=== PATIENT | male | born 1980 | race Caucasian/White ===

== ENCOUNTER → 2016-10-21 | Outpatient (REF) | payer OTHER ==
[~2016-10-21] MED LIST: /ONDA4TA OR; CIPR25SS OR; Clindamycin PO; DECADRON; DECADRON PO; IBUP800T OR; KETO-28 OR; NAPR500T OR; PERC7.5T8 OR; clindamycin
[2016-10-21 12:35] LABS: ALBUMIN 3.9 GM/DL (3.2-5.2); ALBUMIN/GLOBULIN RATIO 1.11 (1.00-1.93); ALKALINE PHOSPHATASE 120 U/L (45-117); ALT/SGPT 39 U/L (12-78); ANION GAP 7 MEQ/L (8-16); AST/SGOT 15 U/L (15-37); BILIRUBIN,TOTAL 0.2 MG/DL (0.2-1.0); BLOOD UREA NITROGEN 9 MG/DL (7-18); CALCIUM LEVEL 8.9 MG/DL (8.5-10.1); CARBON DIOXIDE LEVEL 27 MEQ/L (21-32); CHLORIDE LEVEL 101 MEQ/L (98-107); CREATININE FOR GFR 0.88 MG/DL (0.70-1.30); GLOMERULAR FILTRATION RATE > 60.0 (>60); GLUCOSE, FASTING 327 MG/DL (70-105); POTASSIUM SERUM 4.3 MEQ/L (3.5-5.1); SODIUM LEVEL 135 MEQ/L (136-145); TOTAL PROTEIN 7.4 GM/DL (6.4-8.2)
[2016-10-21 12:44] LABS: INR 0.97
[2016-10-21 12:59] LABS: BASO % 0.6 % (0.0-1.0); EOS # 0.1 K/mm3 (0.0-0.50); EOS % 1.6 % (0.0-3.0); LARGE UNSTAINED CELL # 0.1 K/mm3 (0.0-0.4); LARGE UNSTAINED CELL % 0.9 % (0.0-4.0); LYMPH # 2.3 K/mm3 (1.5-4.5); LYMPH % 27.9 % (24.0-44.0); MEAN CORPUSCULAR HEMOGLOBIN 29.9 pg (27.0-33.0); MEAN CORPUSCULAR HGB CONC 33.9 g/dl (32.0-36.5); MEAN CORPUSCULAR VOLUME 88.1 fl (80.0-96.0); MONO # 0.6 K/mm3 (0.0-0.8); MONO % 7.5 % (0.0-5.0); NEUTROPHILS # 4.9 K/mm3 (1.8-7.7); NEUTROPHILS % 61.5 % (36.0-66.0); RED CELL DISTRIBUTION WIDTH 11.7 % (11.5-14.5)
[2016-10-21 14:19] LABS: PLATELET COUNT, AUTOMATED 218 k/mm3 (150-450)
== END ==
LOC: M SFHCLERA 10:22
PROVIDERS: ATTEND Family Medicine
DX: Z01.818 Encounter for other preprocedural examination (principal); I10 Essential (primary) hypertension; E11.9 Type 2 diabetes mellitus without complications

== ENCOUNTER → 2016-12-16 | Outpatient (REF) | payer OTHER ==
[2016-12-16 13:09] LABS: ALBUMIN 4.2 GM/DL (3.2-5.2); ALBUMIN/GLOBULIN RATIO 1.17 (1.00-1.93); ALKALINE PHOSPHATASE 89 U/L (45-117); ALT/SGPT 40 U/L (12-78); ANION GAP 7 MEQ/L (8-16); AST/SGOT 15 U/L (15-37); BILIRUBIN,TOTAL 0.3 MG/DL (0.2-1.0); BLOOD UREA NITROGEN 11 MG/DL (7-18); CALCIUM LEVEL 9.3 MG/DL (8.5-10.1); CARBON DIOXIDE LEVEL 28 MEQ/L (21-32); CHLORIDE LEVEL 104 MEQ/L (98-107); CHOLESTEROL LEVEL 161 MG/DL (<200); CREATININE FOR GFR 0.87 MG/DL (0.70-1.30); GLOMERULAR FILTRATION RATE > 60.0 (>60); GLUCOSE, FASTING 153 MG/DL (70-105); POTASSIUM SERUM 5.1 MEQ/L (3.5-5.1); SODIUM LEVEL 139 MEQ/L (136-145); TOTAL PROTEIN 7.8 GM/DL (6.4-8.2); TRIGLYCERIDES LEVEL 132 MG/DL (<150)
== END ==
LOC: M SFHCLERA 08:53
PROVIDERS: ATTEND Physician Assistant
DX: E78.2 Mixed hyperlipidemia (principal); E11.65 Type 2 diabetes mellitus with hyperglycemia

== ENCOUNTER → 2017-04-23 | Outpatient (CLI) | payer OTHER ==
--- NOTE | 2017-04-23 12:54 | REP ---
RIGHT SHOULDER, FOUR VIEWS: There is no evidence of an acute fracture, dislocation or intrinsic bone disease. IMPRESSION: No fracture or dislocation. Signed by Edouard Trinidad MD 04/23/2017 02:38 P
== END ==
LOC: M LRY 10:44
PROVIDERS: ATTEND Physician Assistant
DX: M25.511 Pain in right shoulder (principal)

== ENCOUNTER → 2017-12-19 | Outpatient (REF) | payer OTHER ==
[2017-12-19 19:18] LABS: HEMATOCRIT 45.6 % (42.0-52.0); HEMOGLOBIN 15.3 g/dl (13.5-17.5); MEAN CORPUSCULAR HEMOGLOBIN 29.9 pg (27.0-33.0); MEAN CORPUSCULAR HGB CONC 33.6 g/dl (32.0-36.5); MEAN CORPUSCULAR VOLUME 89.1 fl (80.0-96.0); PLATELET COUNT, AUTOMATED 288 10^3/uL (150-450); RED BLOOD COUNT 5.12 10^6/uL (4.30-6.10); RED CELL DISTRIBUTION WIDTH 12.1 % (11.5-14.5); WHITE BLOOD COUNT 9.4 10^3/uL (4.0-10.0)
[2017-12-19 19:35] LABS: ALBUMIN/GLOBULIN RATIO 1.14 (1.00-1.93); ALKALINE PHOSPHATASE 96 U/L (45-117); ALT/SGPT 42 U/L (12-78); ANION GAP 9 MEQ/L (8-16); AST/SGOT 20 U/L (7-37); BILIRUBIN,TOTAL 0.3 MG/DL (0.2-1.0); BLOOD UREA NITROGEN 12 MG/DL (7-18); CALCIUM LEVEL 9.1 MG/DL (8.5-10.1); CARBON DIOXIDE LEVEL 24 MEQ/L (21-32); CHLORIDE LEVEL 108 MEQ/L (98-107); CHOLESTEROL LEVEL 152 MG/DL (<200); CHOLESTEROL RISK RATIO 4.606 (<5); GLOMERULAR FILTRATION RATE > 60.0 (>60); GLUCOSE, FASTING 138 MG/DL (70-100); HDL CHOLESTEROL 33 MG/DL (>40); LDL CHOLESTEROL 94.2 MG/DL (<100); NON-HDL-C 119 MG/DL; POTASSIUM SERUM 4.3 MEQ/L (3.5-5.1); SODIUM LEVEL 141 MEQ/L (136-145); TOTAL PROTEIN 7.5 GM/DL (6.4-8.2); TRIGLYCERIDES LEVEL 124 MG/DL (<150)
[2017-12-19 19:39] LABS: ESTIMATED AVERAGE GLUCOSE 143 MG/DL (60-110); HEMOGLOBIN A1c 6.6 %
[2017-12-19 19:56] LABS: MALB URINE SIEMENS 9.3 MG/L
== END ==
LOC: M SFHCLERA 10:56
DX: I10 Essential (primary) hypertension (principal); E11.65 Type 2 diabetes mellitus with hyperglycemia; E78.2 Mixed hyperlipidemia

== ENCOUNTER → 2020-08-31 | Outpatient (CLI) | payer OTHER ==
[~2020-08-31] MED LIST changes: -/ONDA4TA OR; +AMLO25TA PO; +GLIP10TA PO; +HYDR-4517 PO; +IBUP-1114 PO; +LISI20TA33 PO; +METF500T13 PO; +NEUR300C PO; +ONDA-1 OR
== END ==
LOC: M LABSMTC 09:56
PROVIDERS: ATTEND Anesthesiology
DX: Z01.812 Encounter for preprocedural laboratory examination (principal); Z20.822 Contact with and (suspected) exposure to COVID-19

== ENCOUNTER → 2020-09-03 | Outpatient (CLI) | payer BC ==
--- NOTE | 2020-09-04 17:42 | SLEEPHOME ---
DATE: 09/03/2020 ORDERED BY: BENJAMIN Simmons Diagnostic home sleep testing was performed due to concern for the obstructive sleep apnea syndrome. For testing, a nocturnal T3 respiratory monitoring device was used. Continuous record was made of pulse, oxygen saturation, air flow, chest and abdominal strain, and body position. Nine hours and 48 minutes of data were reviewed. There were 6 hours and 40 minutes marked as time in bed. During the interval marked time in bed, there were 55 respiratory events identified of 10 seconds in duration or greater for a respiratory event index of 8.2. The events were primarily obstructive. Baseline pulse rate was 79. Pulse rate ranged 61 to 107. Baseline saturation was 95%. Saturations fell to 90%. Testing was performed in both the supine and nonsupine positions. IMPRESSION: Abnormal home sleep testing with repetitive respiratory events and oxygen desaturations to 90% with a respiratory event index of 8.2 is consistent with the obstructive sleep apnea syndrome. RECOMMENDATION: The patient should be encouraged to undergo a formal sleep evaluation. MD Trang Pyle NP
== END ==
LOC: M SLEEP HO 13:31
PROVIDERS: ATTEND Physician Assistant
DX: R06.83 Snoring (principal)

== ENCOUNTER 2020-09-05 12:11 | Day surgery (SDC) | payer OTHER ==
[~2020-09-05] VITALS: Ht 182.9 cm; Wt 135.2 kg
[~2020-09-05 12:11] MED LIST changes: +LR 1,000 ML IV ONE; +ceFAZolin SOD 2 GM in IV 1 EA IV ONE
[2020-09-05] MEDS ORDERED: fentaNYL 250 MCG/5 ML INJECTION (J3010) As Ordered ONE (14:15)
[2020-09-05] MEDS ORDERED: ROCURONIUM BROMIDE 50 MG/5 ML VIAL As Ordered ONE (14:15)
[2020-09-05] MEDS ORDERED: propofoL 200 MG/20 ML VIAL As Ordered ONE ×2 (14:15→17:02)
[2020-09-05] MEDS ORDERED: LIDOCAINE 2% 100MG/5ML SDV (FOR ANES.) As Ordered ONE (14:15)
[2020-09-05] MEDS ORDERED: MIDAZOLAM INJ 2MG/2ML VIAL (J2250 PER 1MG) As Ordered ONE (16:02)
[2020-09-05] MEDS ORDERED: ROPIvacaine 0.5% 30ML INJECTION (J2795 PER 1MG) As Ordered ONE (16:11)
[2020-09-05] MEDS ORDERED: dexameTHASONE 4 MG/ML 1ML VIAL (J1100 PER 1MG) As Ordered ONE (17:00)
[2020-09-05] MEDS ORDERED: ONDANSETRON 4MG/2ML VIAL As Ordered ONE (17:00)
--- NOTE | 2020-09-05 17:18 | ROOPDOC ---
[facility] Report Of Operation Report of Operation DATE OF PROCEDURE: 09/05/20 PREPROCEDURE DIAGNOSES: Left knee medial meniscus tear. POSTPROCEDURE DIAGNOSES: Left knee medial meniscus tear. PROCEDURE: Left knee arthroscopy partial medial meniscectomy. SURGEON: Linda Esqueda MD INFORMATION RECEPTIONIST: ANESTHESIA: Gen. anesthetic. Dr. Kenney ESTIMATED BLOOD LOSS: Approximately 10 mL. COMPLICATIONS: None. REMARKS: None. PROCEDURE NOTE: This 31-year-old man had signs and symptoms consistent with an acute medial meniscus tear. He failed conservative management. He wished to go ahead with left knee partial medial meniscectomy. We explained the pros and cons risks and benefits of that. He wished to proceed. I marked the left lower extremity and proceeded to surgery.. DESCRIPTION OF PROCEDURE: Patient was brought to operating theater. He was placed supine on the operating room table. General anesthesia was induced as well as 2 g of IV Ancef given prior to the start of the case. Tourniquet was applied to the left thigh and appropriately padded. Stress positioner was used at the patient's left side. All bony prominences were appropriately padded. Limb was prepped with chlorhexidine-based prep solution running over 3 minutes preparatory solution and drying time prior to draping. Preoperative timeout was performed confirming the site the patient and the surgery. I began by elevating the limb and inflating the tourniquet to 250 mmHg. I made standard anterolateral and anteromedial arthroscopy portals. Examination intra- articular extent the knee. The cartilage of the patellofemoral joint appeared normal. Medial and lateral gutters were normal cartilage of the lateral compartment was normal. Meniscus of the lateral compartment was normal. No loose bodies. ACL and PCL appeared normal and stable to probing. Medial compartment had a mid body medial meniscus tear with horizontal and vertical components. This was debrided to stable margins taking out approximately 3-5% of the meniscus. A shaving instruments as well as duckbill biting instruments. In addition to this tear there is also a tear near the posterior horn and root area. This had a typical nub like appearance. I again divided this down to stable margins. The anterior and posterior roots and horns as well as the entire extent of the meniscus was stable and solid to probing after partial medial meniscectomy. I did look for a lateral parapatellar plica but there is only a little bit of redundant tissue so this was left alone. Knee was thoroughly irrigated. Tourniquet was let down. Knee was drained of intra-articular arthroscopy fluid. Portal sites were cleaned with wet and dry dressing followed by instillation of 5 mL of quarter percent Marcaine as well as Steri-Strips Adaptic 4 x 8 gauze and ABDs dressing overwrapped with 6 inch Pola bandage. Patient was woken up from general anesthetic transferred off the operating room table and taken to postanesthetic care unit in stable condition. All sponge, needle and sponge counts are correct patient's estimated blood loss 10 mL. No complications. Arthroscopy pictures taken and saved onto the system. Plan for the patient is to be range of motion weightbearing as tolerated with crutches as needed. Be discharged home according to day surgery criteria. Their follow-up in the office 2 weeks' time. Prescription has been sent and electronically to the pharmacy of choice. Risk factors for harms from taking opioid medications discussed and assessed including but not limited to personal or family history of substance use disorder, anxiety or depression, , age 65 or older, COPD or other underlying respiratory conditions, and renal or hepatic insufficiency. Discussed with patient concerns and determined any harms they may experience or be currently experiencing such as nausea or constipation, feeling sedated or confused, breathing interruptions during sleep, or taking or craving more opioids than prescribed or difficulty controlling use (addiction). Discussed early warning signs of overdose including confusion, sedation, slurred speech, abnormal gait. Postoperative wound instructions were given. It was recommended to keep the wound clean and dry. Dressing changes as needed. It was reinforced with the patient that they should call us or be seen immediately for redness, drainage, or fever. . DALY ESQUEDA MD Sep 05, 2020 17:18
[2020-09-05] MEDS ORDERED: LR 1,000 ML IV SCH (17:30)
[2020-09-05] MEDS ORDERED: fentaNYL 100 MCG/2 ML INJECTION (J3010) IV PRN (17:30)
[2020-09-05] MEDS ORDERED: oxyCODONE 5MG TAB PO PRN (17:30)
[2020-09-05] MEDS ORDERED: ONDANSETRON 4MG/2ML VIAL IV PRN (17:30)
[2020-09-05] MEDS ORDERED: HYDROMORPHONE HCL 0.5 MG/ 0.5 ML SYRINGE (J1170 PER 1) IV PRN (17:30)
[2020-09-05 18:25] VITALS: BP 120/83
== END 2020-09-05 18:50 | disposition home or self-care (01) ==
LOC: M SDC 12:11
PROVIDERS: ATTEND Orthopaedic Surgery Sports Medicine
DX: S83.242A Other tear of medial meniscus, current injury, left knee, initial encounter (principal); X50.9XXA Other and unspecified overexertion or strenuous movements or postures, initial encounter; Y92.89 Other specified places as the place of occurrence of the external cause; Y93.9 Activity, unspecified; Y99.0 Civilian activity done for income or pay; I10 Essential (primary) hypertension; E11.9 Type 2 diabetes mellitus without complications; Z79.84 Long term (current) use of oral hypoglycemic drugs; Z79.899 Other long term (current) drug therapy; Z91.040 Latex allergy status; Z88.5 Allergy status to narcotic agent
CPT/HCPCS: 29881; J0690; J1100; J2250; J2405; J2795; J3010

== ENCOUNTER 2021-04-29 07:06 | Emergency (ER) | payer BC, OTHER ==
[~2021-04-29] VITALS: Ht 185.4 cm; Wt 131.5 kg
[~2021-04-29 07:06] MED LIST changes: -LR 1,000 ML IV ONE; -ceFAZolin SOD 2 GM in IV 1 EA IV ONE
--- OUTSIDE RECORDS SUMMARY | 2021-04-29 07:12 | CCD ---
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 Name Role Phone Elizabeth Ibarra MD Unavailable Unavailable Elizabeth Ibarra MD Unavailable Unavailable Elizabeth Ibarra MD Unavailable Unavailable Elizabeth Ibarra MD Unavailable Unavailable Elizabeth Ibarra MD Unavailable Unavailable Elizabeth Ibarra MD Unavailable Unavailable Elizabeth Ibarra MD Unavailable Unavailable Elizabeth Ibarra MD Unavailable Unavailable Elizabeth Ibarra MD Unavailable Unavailable Elizabeth Ibarra MD Unavailable Unavailable Elizabeth Ibarra MD Unavailable Unavailable Elizabeth Ibarra MD Unavailable Unavailable Elizabeth Ibarra MD Unavailable Unavailable Elizabeth Ibarra MD Unavailable Unavailable Elizabeth Ibarra MD Unavailable Unavailable Elizabeth Ibarra MD Unavailable Unavailable Elizabeth Ibarra MD Unavailable Unavailable Elizabeth Ibarra MD Unavailable Unavailable Elizabeth Ibarra MD Unavailable Unavailable Elizabeth Ibarra MD Unavailable Unavailable Elizabeth Ibarra MD Unavailable Unavailable Elizabeth Ibarra MD Unavailable Unavailable Elizabeth Ibarra MD Unavailable Unavailable Elizabeth Ibarra MD Unavailable Unavailable Mollison, Elizabeth Calloway MD Unavailable Unavailable Mollison, Elizabeth Calloway MD Unavailable Unavailable Mollison, Elizabeth Calloway MD Unavailable Unavailable Mollison, Elizabeth Calloway MD Unavailable Unavailable Mollison, Elizabeth Calloway MD Unavailable Unavailable Mollison, Elizabeth Calloway MD Unavailable Unavailable DUSSING, BEE RUBBER AND PLASTICS WORKER-C Unavailable Unavailable DUSSING, BEE RUBBER AND PLASTICS WORKER-C Unavailable Unavailable DUSSING, BEE RUBBER AND PLASTICS WORKER-C Unavailable Unavailable DUSSING, BEE RUBBER AND PLASTICS WORKER-C Unavailable Unavailable DUSSING, BEE RUBBER AND PLASTICS WORKER-C Unavailable Unavailable DUSSING, BEE RUBBER AND PLASTICS WORKER-C Unavailable Unavailable DUSSING, BEE RUBBER AND PLASTICS WORKER-C Unavailable Unavailable DUSSING, BEE RUBBER AND PLASTICS WORKER-C Unavailable Unavailable DUSSING, BEE RUBBER AND PLASTICS WORKER-C Unavailable Unavailable DUSSING, BEE RUBBER AND PLASTICS WORKER-C Unavailable Unavailable DUSSING, BEE RUBBER AND PLASTICS WORKER-C Unavailable Unavailable DUSSING, BEE RUBBER AND PLASTICS WORKER-C Unavailable Unavailable DUSSING, BEE RUBBER AND PLASTICS WORKER-C Unavailable Unavailable DUSSING, BEE RUBBER AND PLASTICS WORKER-C Unavailable Unavailable DUSSING, BEE RUBBER AND PLASTICS WORKER-C Unavailable Unavailable DUSSING, BEE RUBBER AND PLASTICS WORKER-C Unavailable Unavailable DUSSING, BEE RUBBER AND PLASTICS WORKER-C Unavailable Unavailable DUSSING, BEE RUBBER AND PLASTICS WORKER-C Unavailable Unavailable DUSSING, BEE RUBBER AND PLASTICS WORKER-C Unavailable Unavailable DUSSING, BEE RUBBER AND PLASTICS WORKER-C Unavailable Unavailable DUSSING, BEE RUBBER AND PLASTICS WORKER-C Unavailable Unavailable DUSSING, BEE RUBBER AND PLASTICS WORKER-C Unavailable Unavailable DUSSING, BEE RUBBER AND PLASTICS WORKER-C Unavailable Unavailable DUSSING, BEE RUBBER AND PLASTICS WORKER-C Unavailable Unavailable DUSSING, BEE RUBBER AND PLASTICS WORKER-C Unavailable Unavailable DUSSING, BEE RUBBER AND PLASTICS WORKER-C Unavailable Unavailable DUSSING, BEE RUBBER AND PLASTICS WORKER-C Unavailable Unavailable DUSSING, BEE RUBBER AND PLASTICS WORKER-C Unavailable Unavailable DUSSING, BEE RUBBER AND PLASTICS WORKER-C Unavailable Unavailable DUSSING, BEE RUBBER AND PLASTICS WORKER-C Unavailable Unavailable DUSSING, BEE RUBBER AND PLASTICS WORKER-C Unavailable Unavailable DUSSING, BEE RUBBER AND PLASTICS WORKER-C Unavailable Unavailable DUSSING, BEE RUBBER AND PLASTICS WORKER-C Unavailable Unavailable DUSSING, BEE RUBBER AND PLASTICS WORKER-C Unavailable Unavailable Maki SHAFFER Unavailable Unavailable BUNKER, R FABRICIO PA Unavailable Unavailable BUNKER, R FABRICIO PA Unavailable Unavailable BUNKER, R FABRICIO PA Unavailable Unavailable BUNKER, R FABRICIO PA Unavailable Unavailable BUNKER, R FABRICIO PA Unavailable Unavailable BUNKER, R FABRICIO PA Unavailable Unavailable BUNKER, R FABRICIO PA Unavailable Unavailable BUNKER, R FABRICIO PA Unavailable Unavailable BUNKER, R FABRICIO PA Unavailable Unavailable BUNKER, R FABRICIO PA Unavailable Unavailable BUNKER, R FABRICIO PA Unavailable Unavailable BUNKER, R FABRICIO PA Unavailable Unavailable BUNKER, R FABRICIO PA Unavailable Unavailable BUNKER, R FABRICIO PA Unavailable Unavailable BUNKER, R FABRICIO PA Unavailable Unavailable BUNKER, R FABRICIO PA Unavailable Unavailable BUNKER, R FABRICIO PA Unavailable Unavailable BUNKER, R FABRICIO PA Unavailable Unavailable BUNKER, R FABRICIO PA Unavailable Unavailable BUNKER, R FABRICIO PA Unavailable Unavailable BUNKER, R FABRICIO PA Unavailable Unavailable BUNKER, R FABRICIO PA Unavailable Unavailable BUNKER, R FABRICIO PA Unavailable Unavailable BUNKER, R FABRICIO PA Unavailable Unavailable BUNKER, R FABRICIO PA Unavailable Unavailable BUNKER, R FABRICIO PA Unavailable Unavailable BUNKER, R FABRICIO PA Unavailable Unavailable BUNKER, R FABRICIO PA Unavailable Unavailable BUNKER, R FABRICIO PA Unavailable Unavailable BUNKER, R FABRICIO PA Unavailable Unavailable BUNKER, R FABRICIO PA Unavailable Unavailable BUNKER, R FABRICIO PA Unavailable Unavailable BUNKER, R FABRICIO PA Unavailable Unavailable BUNKER, R FABRICIO PA Unavailable Unavailable BUNKER, R FABRICIO PA Unavailable Unavailable BUNKER, R FABRICIO PA Unavailable Unavailable BUNKER, R FABRICIO PA Unavailable Unavailable BUNKER, R FABRICIO PA Unavailable Unavailable BUNKER, R FABRICIO PA Unavailable Unavailable BUNKER, R FABRICIO PA Unavailable Unavailable BUNKER, R FABRICIO PA Unavailable Unavailable BUNKER, R FABRICIO PA Unavailable Unavailable BUNKER, R FABRICIO PA Unavailable Unavailable BUNKER, R FABRICIO PA Unavailable Unavailable BUNKER, R FABRICIO PA Unavailable Unavailable BUNKER, R FABRICIO PA Unavailable Unavailable BUNKER, R FABRICIO PA Unavailable Unavailable BUNKER, R FABRICIO PA Unavailable Unavailable BUNKER, R FABRICIO PA Unavailable Unavailable BUNKER, R FABRICIO PA Unavailable Unavailable BUNKER, R FABRICIO PA Unavailable Unavailable BUNKER, R FABRICIO PA Unavailable Unavailable BUNKER, R FABRICIO PA Unavailable Unavailable BUNKER, R FABRICIO PA Unavailable Unavailable BUNKER, R FABRICIO PA Unavailable Unavailable AYALA, M LEWIS PA Unavailable Unavailable AYALA, M LEWIS PA Unavailable Unavailable AYALA, M LEWIS PA Unavailable Unavailable AYALA, M LEWIS PA Unavailable Unavailable AYALA, M LEWIS PA Unavailable Unavailable AYALA, M LEWIS PA Unavailable Unavailable AYALA, M LEWIS PA Unavailable Unavailable AYALA, M LEWIS PA Unavailable Unavailable AYALA, M LEWIS PA Unavailable Unavailable AYALA, M LEWIS PA Unavailable Unavailable AYALA, M LEWIS PA Unavailable Unavailable AYALA, M LEWIS PA Unavailable Unavailable AYALA, M LEWIS PA Unavailable Unavailable AYALA, M LEWIS PA Unavailable Unavailable AYALA, M LEWIS PA Unavailable Unavailable AYALA, M LEWIS PA Unavailable Unavailable AYALA, M LEWIS PA Unavailable Unavailable AYALA, M LEWIS PA Unavailable Unavailable AYALA, M LEWIS PA Unavailable Unavailable AYALA, M LEWIS PA Unavailable Unavailable AYALA, M LEWIS PA Unavailable Unavailable AYALA, M LEWIS PA Unavailable Unavailable AYALA, M LEWIS PA Unavailable Unavailable AYALA, M LEWIS PA Unavailable Unavailable AYALA, M LEWIS PA Unavailable Unavailable AYALA, M LEWIS PA Unavailable Unavailable AYALA, M LEWIS PA Unavailable Unavailable AYALA, M LEWIS PA Unavailable Unavailable AYALA, M LEWIS PA Unavailable Unavailable AYALA, M LEWIS PA Unavailable Unavailable AYALA, M LEWIS PA Unavailable Unavailable AYALA, M LEWIS PA Unavailable Unavailable AYALA, M LEWIS PA Unavailable Unavailable AYALA, M LEWIS PA Unavailable Unavailable AYALA, M LEWIS PA Unavailable Unavailable Re-disclosure Warning The records that you are about to access may contain information from federally-assisted alcohol or drug abuse programs. If such information is present, then the following federally mandated warning applies: This information has been disclosed to you from records protected by federal confidentiality rules (42 CFR part 2). The federal rules prohibit you from making any further disclosure of this information unless further disclosure is expressly permitted by the written consent of the person to whom it pertains or as otherwise permitted by 42 CFR part 2. A general authorization for the release of medical or other information is NOT sufficient for this purpose. The Federal rules restrict any use of the information to criminally investigate or prosecute any alcohol or drug abuse patient.The records that you are about to access may contain highly sensitive health information, the redisclosure of which is protected by Article 27-F of the [place] State Public Health law. If you continue you may have access to information: Regarding HIV / AIDS; Provided by facilities licensed or operated by the [facility] Office of Mental Health; or Provided by the [facility] Office for People With Developmental Disabilities. If such information is present, then the following [facility] mandated warning applies: This information has been disclosed to you from confidential records which are protected by state law. State law prohibits you from making any further disclosure of this information without the specific written consent of the person to whom it pertains, or as otherwise permitted by law. Any unauthorized further disclosure in violation of state law may result in a fine or half-way sentence or both. A general authorization for the release of medical or other information is NOT sufficient authorization for further disc losure. Encounters Encounter Providers Location Date Indications Data Source(s ) Recurring Patient Referrer: FABRICIO ALEXANDER 11/27/2020 10: 21:34 AM EDT [facility] [place] [address] [address] 11/15/2020 12:00:00 AM EDT eCW1 ([facility]) Outpatient Attender: BEE NEWBERRY-CReferrer: FABRICIO ALEXANDER 10/29/2020 02:30:17 PM EDT [facility] Office Visit Attender: Brodie Sterling/Marli/Navarro/Re indl 10/19/2020 01:45:00 PM EDT [facility] ([facility]) Recurring Patient Referrer: FABRICIO ALEXANDER 10/01/2020 11: 11:12 AM EDT [facility] Office Visit Attender: Brodie Sterling/Marli/Navarro/Re indl 09/18/2020 08:15:00 AM EDT [facility] ([facility]) Outpatient Attender: LEWIS Sterling/Marli/Navarro/Rein dl 08/31/2020 01:30:00 PM EST [facility] ([facility]) Outpatient Attender: BEE NEWBERRY-CReferrer: FABRICIO ALEXANDER 08/27/2020 08:54:12 AM EST [facility] [place] [address] [address] 08/13/2020 12:00:00 AM EST eCW1 ([facility]) [place] [address] [address] 08/13/2020 12:00:00 AM EST eCW1 ([facility]) Outpatient Attender: Brodie Sterling/[place]/Navarro/Re indl 08/10/2020 07:15:00 AM EST [facility] ([facility], ) Outpatient Attender: Brodie Sterling/Marli/Navarro/Re indl 07/26/2020 08:45:00 AM EST [facility] ([facility], ) Outpatient Attender: BEE LANDEROSCReferrer: FABRICIO ALEXANDER 06/11/2020 10:19:26 AM EST [facility] Outpatient Attender: BEE LANDEROSCReferrer: FABRICIO ALEXANDER 03/23/2020 03:30:33 PM EDT [facility] Immunizations Vaccine Date Status Description Data Source(s) COVID-19 VACCINE Pfizer 04/19/2021 12:00:00 AM EDT completed [facility] Vaccine Series Complete: NOThis Data was Submitted to [facility]. COVID-19 VACC, MRNA(PFIZER)/PF 04/19/2021 12:00:00 AM EDT completed [facility] Medications Medication Brand Name Start Date Product Form Dose Route Admi nistrative Instructions Pharmacy Instructions Status Indications Reaction Description Data Source(s) Diabetic Shoes UNK 11/19/2020 12:00:00 AM EDT active Diabetic Shoes eCW1 ([facility]) Acetaminophen 325 MG / Oxycodone Hydrochloride 5 MG Or al Tablet Oxycodone-Acetaminophen 09/06/2020 12:00:00 AM EST ORAL completed [facility] ([facility], ) Acetaminophen 325 MG / Hydrocodone Bitartrate 5 MG Ora l Tablet Hydrocodone-Acetaminophen 09/05/2020 12:00:00 AM EST ORAL completed [facility] ([facility], ) Insurance Providers Payer name Policy type / Coverage type Policy ID Covered alliance party ID Covered alliance party's relationship to rodrigues Policy Rodrigues Plan Information MEDICAID [id number] SP [id number] [place] Medicaid F [id number] SELF 7 [id number] [place] F [id number] SELF 7 [id number] [place] MEDICAID [id number] Leydi 7 [id number] [place] F [id number] SELF [id number] GAVIN [id number] SP [id number] [place] Federal Employee Program J [id number] SELF [id number] [place] [id number] S [id number] GAVIN MEDICAID PI PI SELF PAY ONLY UNAVAILABLE UNAV AILABLE SELF PAY ONLY [id number] SP [id number] SELF PAY UNAVAILABLE SP UNAVAILA BLE MEDICAID M [id number] S [id number] DEPT OF LABOR [place] [id number] SP [id number] BC FEDERAL EMPLOYEE PROGRAM [id number] SP [id number] GAVIN [id number] SP [id number] DEPART OF LABOR O [id number] S [id number] CPAPC -PHYSICIAN [id number] 20 [id number] CPAC -O/P [id number] 20 [id number] 1 ANSI-Commercial [id number] Problems, Conditions, and Diagnoses No Information Surgeries/Procedures Procedure Description Date Indications Data Source(s) ARTHRS KNE SURG W/MENISCECTOMY MED/LAT W/SHVG 09/06/19 21 12:00:00 AM EST [facility] ([facility]) Results ID Date Data Source [id number] 04/26/2021 12:00:00 AM EDT [facility] Name Value Range Interpretation Code Description Data Casandra rce(s) Supporting Document(s) SARS-CoV2 Rapid Antigen Positive [facility] This lab was reported by [facility]. ID Date Data Source [id number] 10/29/2020 02:30:17 PM EDT [facility] PC[facility]: Marcos bragg WilliamsDOB: 1980Provider: Radha Orosco: 10/26/2020 Chief ComplaintChronic low back pain. Chief Complaint 2NYSW VAS PAIN Established: MA completing section: DB DIRECTOR TALENT ACQUISITION History of Present IllnessRecent test/procedures: Patient was asked and denies having any tests since their last visit. Patient was asked and denies being seen by any Physicians since their last visit. At today's visit patient presents with their Self Implanted Devices The patient does not have any implanted devices. The patient does not have a glucose monitoring device. Patient is currently working. 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 The patient is being seen for a follow-up. Pain Duration: years Pain Score: a current pain level of 7/10. Condition type: The patient is being seen for a chronic condition. PAIN LOCATION: the pain is located in the low back and radiates to the right buttock and right thigh. PAST EVALUATION: The patient has been previously evaluated by the following specialty: Orthopedic evaluation by. REVIEW OF PAST DIAGNOSTICS: have included: MRI. PAST TREATMENT has included: OPIOID ANALGESICS (effective). INTERVAL EVENTS: include no significant change impacting patients medical condition. Patient had knee replacement surgery 6 weeks ago. ASSOCIATED SYMPTOMS: include radiating The pain radiates to the right buttock and right thigh., but no fecal incontinence, no extremity weakness and no urinary incontinence. Active Problems 1. Bulging of lumbar intervertebral disc (722.10) (M51.26) 2. 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 Lumbar radiculopathy (724.4) (M54.16) 5. Right shoulder pain (719.41) (M25.511) 6. Status post lumbar discectomy (V45.89) (Z98.890) 7. Wrist pain (719.43) (M25.539) Allergies Codeine Derivatives Gatrointestinal upset; Recorded By: Teressa Gutierrez; 12/24/2018 9:34:16 AM Latex Itching; Recorded By: Crissy Verma; 07/21/2016 10:18:19 AMDenied Adhesive Tape Recorded By: Crissy Verma; 07/21/2016 10:18:19 AM Iodinated Contrast Media Recorded By: Crissy Verma; 07/21/2016 10:18:19 AM Current Meds Amitriptyline HCl - 10 MG Oral Tablet; TAKE 1 TABLET AT BEDTIME. MDD:1;Therapy: 64Pxo2805 to (Evaluate:71Zjs1447) Requested for: 11Oct2020; LastRx:11Oct2020 Ordered amLODIPine Besylate 5 MG Oral Tablet;Therapy: (Recorded:21Jul2016) to Recorded Gabapentin 300 MG Oral Capsule; TAKE 2 CAPSULES 3 TIMES DAILY. MDD:6;Therapy: 19Dec2016 to (Evaluate:10Hba6223) Requested for: 16Jul2020; LastRx:16Jul2020 Ordered09/02/2019 glipiZIDE TABS;Therapy: (Recorded:41Pun3864) to Recorded HYDROcodone- Acetaminophen 10-325 MG Oral Tablet; Take 1 tablet three times a dayas needed for pain MDD:3;Therapy: 29Jwd0501 to (Evaluate:42Acy2420) Requested for: 11Oct2020; LastRx:31Ppg2003 Ordered10/26/2020 12PM Ibuprofen 800 MG Oral Tablet; TAKE 1 TABLET TWICE DAILY NEEDED PRN WithFOOD MDD:2;Therapy: 08Pwy0816 to (Evaluate:10Dec2020) Requested for: 11Oct2020; LastRx:11Oct2020 Ordered Lisinopril TABS;Therapy: (Recorded:60Bqy5980) to Recorded metFORMIN HCl - 500 MG Oral Tablet;Therapy: (Recorded:21Jul2016) to Recorded Past Medical History Denied: History of blood coagulation disorder History of diabetes mellitus (V12.29) (Z86.39) History of headache (V13.89) (Z87.898) History of hypertension (V12.59) (Z86.79) History of low back pain (V13.59) (Z87.39) Denied: History of On anticoagulant therapy Surgical History History of Hernia Repair 1991 Denied: History of Implantable Cardioverter-Defibrillator History of Neck Surgery February 2017 Denied: History of Pacemaker Placement History of Wrist Surgery right, 1987 VitalsVital Signs Recorded: 26Oct2020 01:43PM Height: 6 ft 1 inWeight: 307 lb BMI Calculated: 40.5BSA Calculated: 2.58Systolic: 139, SittingDiastolic: 91, SittingHeart Rate: 94Respiration: 17Temperature: 97.2 F, TympanicHeight measured w/wo shoes: w/shoesPain Scale: 7Depression: 0 Physical ExamGeneral: The patient is a well nourished/well developed, male, who is morbidly obese, who is in no acute distress and appears stated age. Eyes: Lids are atraumatic, no lesions, sclerae are anicteric. Ears, Nose, Mouth, Throat: Patient wearing a mask due to COVID-19. Respiratory: Normal chest expansion and respiratory effort. Gait and Station: Gait was normal. Skin: Warm, dry, acyanotic. Psychological: Alert and oriented to person, place and time. Mood and affect are pleasant and appropriate. Judgement intact. Insight normal without delusions or hallucinations. Denies suicidal/homicidal ideation. Results/DataThis patient had a urine drug screen on 06/08/20. Results are in compliance. Assessment 1. Lumbar radiculopathy (724.4) (M54.16) 2. Status post lumbar discectomy (V45.89) (Z98.890) 3. 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 MIPS - Survey Evaluation Evaluation Status: Complete Done: [id number] Depression Screening - Patient's PHQ-9 score is: : 0 - 4 none ...No fup plan neededHave you EVER received a Pneumococcal Vaccine...? : No - Patient has never received a Pneumococcal vaccinationFLU - Have you received a flu shot in 2020 ? : No - Influenza not previously received due to patient declined or other patient reasonsBMI for Patients 18 and over : 25 or greater, BMI above normal parameters, follow-up plan documentedTobacco Use Counseling: : Patient received brief counseling in regards to Tobacco useDo you use any kind of Tobacco? (smokes or uses smokeless tobacco): : Patient identified as a Tobacco User<OBX.5.1><OBX.5.1.1>WOMEN </OBX.5.1.1><OBX.5.1.2> ANYONE >/= 65 - How many times in the past year have you had 4 or more</OBX.5.1.2></OBX.5.1> drinks in a day? : N/AMEN < 65 - How many times in the past year have you had 5 or more drinks in a day? : Zero 2. Follow-up in 2 months Follow Up Follow-up Status: Hold For - Scheduling Re quested for: [id number] (his day off of work). KDSchedule Appointment for 15 or 30 minutes : Schedule 15 minute appointment Medication:. [place] IT SECURITY CONSULTANT Information: IT SECURITY CONSULTANT was consulted by my designee and I have reviewed the information presented to me and find no aberrant compliance issues. Patient has been informed. General Medications Prescribed: GABAPENTIN, AMITRIPTYLINE . GENERAL MEDICATIONS: I advised the patient today/previously regarding treatment with the above medication(s). The risks, benefits, common side effects and alternative treatments were discussed with the patient. The provider verbalized with the patient. The patient verbalized understanding and was told to call if there were any untoward effects. Controlled Substance Prescribed: HYDROCODONE . CONTROLLED SUBSTANCE INFORMATION: I advised the patient today/previously regarding treatment with the above controlled substance and/or narcotic. The patient was then informed of the risks, benefits, and alternatives of the narcot ic. The risks discussed included but were not limited to physical and/or psychological dependence, tolerance of the medication, drowsiness, sleepiness, balance/coordination problems, confusion, allergic reaction or any other abnormal symptoms. The patient was advised and agreed to use the medication only as prescribed, and not to drive, or operate heavy equipment or machinery. The patient understood and consented to both undergo a narcotic/opiate regimen and agreed to sign and comply with all of the [facility] terms of a controlled substance treatment and agreement.NSAIDS Prescribed: IBUPROFEN . NSAIDS: I advised the patient today/previously regarding treatment with the above NSAIDS. Patient denies history of and is aware of rare but serious risk of kidney, cardiovascular, and gastrointestinal complications. Treatment includes: FOLLOW UP: The patient should have a follow up visit in 2 months. Miscellaneous: - WEIGHT LOSS: Weight loss was discussed and encouraged. - SMOKING CESSATION: Patient is encouraged to stop smoking. Education material outlining how to quit and how smoking might impact conditions the patient may already have, offered and available to patient at today's visit. PHQ-9 Patient's PHQ-9 score was 0-4 suggesting a Minimal level of Depression. No further plan is required at this time. The PHQ-9 was administered today as part of routine health risk screening for depression and psychosocial functioning. Screening for depression in chronic pain patients is standard of care due to the high rate of co-morbidity between these illnesses. In conjunction with other health risk assessment screening data, such as the Opioid Risk Tool and Visual Analogue Scale, this information is imperative for determining the patients risk factors and potential comorbidities prior to determining a safe and effective treatment plan. Discussion/SummaryPleasant 39-year-old male patient with chronic lumbar pain. Since he was last seen, he had total knee replacement. He states his knee pain is significantly improved and completely gone. Unfortunately, since the surgery he has noticed an increase in his low back pain. He attributes this to likely a change in his gait since he waited for so long to have the knee replacement surgery and now that he is pain-free, he is likely walking more upright and utilizing muscles that he has not used in quite some time. I am in agreement with this and we mutually decided to give this time before we consider other treatment modalities. Patient will follow up in 2 months time, sooner if needed. If he continues to have low back pain, consider the facet algorithm in follow-up. [employer] DisclaimerNYSWC [employer] Prints Disclaimer: This document was dictated and electronically signed using [employer] Speaking software. A reasonable attempt at proof reading has been made to minimize errors. Please call with any questions. Signatures Electronically signed by : Bee Orosco NP; Oct 26 2020 2:05PM EST (Author) Electronically signed by : Rocael Harrison MD; Oct 29 2020 2:30PM EST Name Value Range Interpretation Code Description Data Casandra e(s) Supporting Document(s) ID Date Data Source [id number] 09/05/2020 05:24:00 PM EST [facility] ([facility], ) Name Value Range Interpretation Code Description Data Casandra rce(s) Supporting Document(s) Glucose [Mass/volume] in Capillary blood by Glucometer 221 mg/dL 70-105 Above high normal [facility] ([facility], ) ID Date Data Source [id number] 09/05/2020 01:38:00 PM EST [facility] ([facility], ) Name Value Range Interpretation Code Description Data Casandra rce(s) Supporting Document(s) Glucose [Mass/volume] in Capillary blood by Glucometer 240 mg/dL 70-105 Above high normal [facility] ([facility], ) ID Date Data Source [id number] 08/31/2020 11:00:00 AM EST [facility] Name Value Range Interpretation Code Description Data Casandra rce(s) Supporting Document(s) SARS coronavirus 2 RNA Not Detected [facility] [place] This lab was ordered by [facility] and reported by [facility]. ID Date Data Source [id number] 08/27/2020 08:54:12 AM EST [facility], PCName: Marcos AmayaDOB: 1980Provider: Radha Orosco: 08/24/2020 Chief ComplaintChronic low back pain. Chief Complaint 2NYSW VAS PAIN Established: RADHA completing section: Zaid BEDOYA History of Present IllnessRecent test/procedures: Patient was asked and denies having any tests since their last visit. Patient was asked and denies being seen by any Physicians since their last visit. The patient was last seen by a [facility] provider on 06/08/2020. At today's visit patient presents with their Self Implanted Devices The patient does not have any implanted devices. The patient does not have a glucose monitoring device. Patient is currently working. 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 The patient is being seen for a follow-up. Pain Duration: years Pain Score: a current pain level of 5/10. Condition type: The patient is being seen for a chronic condition. PAIN LOCATION: the pain is located in the low back an d radiates to the right buttock and right thigh. PAST EVALUATION: The patient has been previously evaluated by the following specialty: Orthopedic evaluation by. REVIEW OF PAST DIAGNOSTICS: have included: MRI. PAST TREATMENT has included: OPIOID ANALGESICS (effective). INTERVAL EVENTS: include no significant change impacting patients medical condition. 09/05/20 will have surgery on his left knee. ASSOCIATED SYMPTOMS: include radiating The pain radiates to the right buttock and right thigh., but no fecal incontinence, no extremity weakness and no urinary incontinence. Review of SystemsConstituti onal: Normal. Eyes: Normal. ENT: normal. Cardiovascular: Normal. Respiratory: Normal. Gastrointestinal: Normal. Genitourinary: Normal. Musculoskeletal: lower back pain. Integumentary: Normal. Neurological: Normal. Psychiatric: Normal. Endocrine: Normal. Hematologic/Lymphatic: Normal. Active Problems 1. Bulging of lumbar intervertebral disc (722.10) (M51.26) 2. Chronic bilateral low back pain with right-sided sciatica (724.2,724.3,338.29) (M54.41,G89.29) 3. intermediate (current) use of opiate analgesic (V58.69) (Z79.891) 4. Lumbar radiculopathy (724.4) (M54.16) 5. Right shoulder pain (719.41) (M25.511) 6. Status post lumbar discectomy (V45.89) (Z98.890) 7. Wrist pain (719.43) (M25.539) Allergies Codeine Derivatives Gatrointestinal upset; Recorded By: Teressa Gutierrez; 12/24/2018 9:34:16 AM Latex Itching; Recorded By: Crissy Verma; 07/21/2016 10:18:19 AMDenied Adhesive Tape Recorded By: Crissy Verma; 07/21/2016 10:18:19 AM Iodinated Contrast Media Recorded By: Crissy Verma; 07/21/2016 10:18:19 AM Current Meds Amitriptyline HCl - 10 MG Oral Tablet; TAKE 1 TABLET AT BEDTIME. MDD:1;Therapy: 25Moi8773 to (Evaluate:06Sep2020) Requested for: 66Syr3923; LastRx:[id number] Ordered amLODIPine Besylate 5 MG Oral Tablet;Therapy: (Recorded:21Jul2016) to Recorded Gabapentin 300 MG Oral Capsule; TAKE 2 CAPSULES 3 TIMES DAILY. MDD:6;Therapy: 19Dec2016 to (Evaluate:65Ewe1086) Requested for: 16Jul2020; LastRx:[id number] Ordered09/02/2019 glipiZIDE TABS;Therapy: (Recorded:64Zmv4134) to Recorded HYDROcodone-Acetaminophen 10-325 MG Oral Tablet; Take 1 tablet three times a dayas needed for pain MDD:3;Therapy: 03Wkr5155 to (Evaluate:13Sep2020) Requested for: 14Aug2020; LastRx:[id number] OrderedLD 11am 08/24/2020 Ibuprofen 800 MG Oral Tablet; TAKE 1 TABLET TWICE DAILY NEEDED PRN WithFOOD MDD:2;Therapy: 40Wvv7082 to (Evaluate:14Sep2020) Requested for: 16Jul2020; LastRx:16Jul2020 Ordered Lisinopril TABS;Therapy: (Recorded:00Azy6199) to Recorded metFORMIN HCl - 500 MG Oral Tablet;Therapy: (Recorded:21Jul2016) to Recorded Past Medical History Denied: History of blood coagulation disorder History of diabetes mellitus (V12.29) (Z86.39) History of headache (V13.89) (Z87.898) History of hypertension (V12.59) (Z86.79) History of low back pain (V13.59) (Z87.39) Denied: History of On anticoagulant therapy Surgical History History of Hernia Repair 1991 Denied: History of Implantable Cardioverter- Defibrillator History of Neck Surgery February 2017 Denied: History of Pacemaker Placement History of Wrist Surgery right, 1987 Family History Family history of hypertension (V17.49) (Z82.49) Family history of diabetes mellitus (V18.0) (Z83.3) Family history of hypertension (V17.49) (Z82.49) Family history of cardiac disorder (V17.49) (Z82.49) Family history of diabetes mellitus (V18.0) (Z83.3) Family history of malignant neoplasm (V16.9) (Z80.9) Family history of hypertension (V17.49) (Z82.49) Social History Current non- drinker of alcohol (V49.89) (Z78.9) Former smoker (V15.82) (Z87.891) Full-time employment Monogamous relationship No illicit drug use Uses chewing tobacco VitalsVital Signs Recorded: 24Aug2020 02:07PM Height: 6 ft 1 inWeight: 311 lb BMI Calculated: 41.03BSA Calculated: 2.6Systolic: 124, SittingDiastolic: 80, SittingHeart Rate: 98Respiration: 16Temperature: 98.6 FHeight measured w/wo shoes: w/shoesPain Scale: 5 Physical ExamGeneral: The patient is a well nourished/well developed, male, who is morbidly obese, who is in no acute distress and appears stated age. Eyes: Lids are atraumatic, no lesions, sclerae are anicteric. Ears, Nose, Mouth, Throat: Patient wearing a mask due to COVID- 19. Respiratory: Normal chest expansion and respiratory effort. Gait and Station: Gait was normal. Skin: Warm, dry, acyanotic. Psychological: Alert and oriented to person, place and time. Mood and affect are pleasant and appropriate. Judgement intact. Insight normal without delusions or hallucinations. Denies suicidal/homicidal ideation. Results/DataThis patient had a urine drug screen on 06/08/20. Results are in compliance. Assessment 1. Lumbar radiculopathy (724.4) (M54.16) 2. intermediate (current) use of opiate analgesic (V58.69) (Z79.891) 3. Status post lumbar discectomy (V45.89) (Z98.890) Plan 1. Follow-up in 2 months Follow Up Follow-up Status: Hold For - Scheduling Requested for: 60Oua2952Qvukuip a Fridaysched Appointment for 15 or 30 minutes : Schedule 15 minute appointment Medication:. [facility] Information: IT SECURITY CONSULTANT was consulted by my designee and I have reviewed the information presented to me and find no aberrant compliance issues. Patient has been informed. General Medications Prescribed: GABAPENTIN, AMITRIPTYLINE . GENERAL MEDICATIONS: I advised the patient today/previously regarding treatment with the above medication(s). The risks, benefits, common side effects and alternative treatments were discussed with the patient. The provider verbalized with the patient. The patient verbalized understanding and was told to call if there were any untoward effects. Controlled Substance Prescribed: HYDROCODONE . CONTROLLED SUBSTANCE INFORMATION: I advised the patient today/previously regarding treatment with the above controlled substance and/or narcotic. The patient was then informed of the risks, benefits, and alternatives of the narcotic. The risks discussed included but were not limited to physical and/or psychological dependence, tolerance of the medication, drowsiness, sleepiness, balance/coordination problems, confusion, allergic reaction or any other abnormal symptoms. The patient was advised and agreed to use the medication only as prescribed, and not to drive, or operate heavy equipment or machinery. The patient understood and consented to both undergo a narcotic/opiate regimen and agreed to sign and comply with all of the [facility] terms of a controlled substance treatment and agreement. Treatment includes: FOLLOW UP: The patient should have a follow up visit in 2 months. Discussion/SummaryPleasant 39-year-old male patient with chronic lumbar pain. He has been waiting almost one year to have left knee replacement surgery (under Workmen's Compensation), and he is finally scheduled for surgery on September 05. I suspect that some of his back pain may be secondary to his significant left knee pain. I did explain to the patient that he may be prescribed postop pain medication by the surgeon and he is to discontinue our opioid medication while he is on the postop medication, then restart the hydrocodone prescribed by this office once the postop medication is completed. Patient will follow up in 2 months time to reevaluate his low back pain. [employer] DisclaimerNYSWC [employer] Print[employer] Disclaimer: This document was dictated and electronically signed using [employer] Speaking software. A reasonable attempt at proof reading has been made to minimize errors. Please call with any questions. Signatures Electronically signed by : Bee Orosco NP; Aug 24 2020 2:29PM EST (Author) Electronically signed by : Rolan Lassiter MD; Aug 27 2020 8:54AM EST Name Value Range Interpretation Code Description Data Casandra rce(s) Supporting Document(s) ID Date Data Source [id number] 06/11/2020 10:19:26 AM EST [facility] PCName: Marcos AmayaDOB: 1980Provider: Radha Orosco: 06/08/2020 Chief ComplaintChronic low back pain. Chief Complaint 2NYSW VAS PAIN Established: MA completing section: AURELIANO Loyola History of Present IllnessA Urine Drug Screen was ordered for Flip Amaya and collected on site today 06/08/2020. Creatinine has been ordered as well for specimen validity, not for kidney function. Preliminary UDS results are not final and should not be used to determine patient care or plan of treatment. Initially a qualitative immunoassay screen will be done. Please note this is not a dip test. Any positive findings or negative findings that are out of compliance will be further tested with a more comprehensive quantitative confirmation LCMS study. It is part of the normal prescribing protocol of controlled substances and is considered standard of care. Recent test/procedures: Patient was asked and denies having any tests since their last visit. Patient was asked and denies being seen by any Physicians since their last visit. At today's visit patient presents with their Self Implanted Devices The patient does not have any implanted devices. The patient does not have a glucose monitoring device. Patient is currently working. The patient is being seen for a follow-up. Pain Duration: years Pain Score: a current pain level of 6/10. Condition type: The patient is being seen for a chronic condition. PAIN LOCATION: the pain is located in the low back and radiates to the right buttock and right thigh. PAST EVALUATION: The patient has been previously evaluated by the following specialty: Orthopedic evaluation by. REVIEW OF PAST DIAGNOSTICS: have included: MRI. PAST TREATMENT has included: OPIOID ANALGESICS (effective). INTERVAL EVENTS: include no significant change impacting patients medical condition. He continues to have knee pain, followed by orthopedics. Needs to have surgery, but this is a WC case and he is awaiting being approved for this. Even if he is approved, surgeries have been cut in 1/2 due to COVID and he may be waiting several months for knee replacement. ASSOCIATED SYMPTOMS: include radiating The pain radiates to the right buttock and right thigh., but no fecal incontinence, no extremity weakness and no urinary incontinence. Review of SystemsConstitutional: Normal. Eyes: Normal. ENT: normal. Cardiovascular: Normal. Respiratory: Normal. Gastrointestinal: Normal. Genitourinary: Normal. Musculoskeletal: lower back pain and joint pain. Integumentary: Normal. Neurological: Normal. Psychiatric: Normal. Endocrine: Normal. Hematologic/Lymphatic: Normal. Patient maintains at today's visit there has been no change in his/her hematologic history. I reviewed the above with the patient and I feel the ROS to be negative/normal. Active Problems 1. Bulging of lumbar intervertebral disc (722.10) (M51.26) 2. 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 Lumbar radiculopathy (724.4) (M54.16) 5. Right shoulder pain (719.41) (M25.511) 6. Status post lumbar discectomy (V45.89) (Z98.890) 7. Wrist pain (719.43) (M 25.539) Allergies Codeine Derivatives Gatrointestinal upset; Recorded By: Teressa Gutierrez; 12/24/2018 9:34:16 AM Latex Itching; Recorded By: Crissy Verma; 07/21/2016 10:18:19 AMDenied Adhesive Tape Recorded By: Crissy Verma; 07/21/2016 10:18:19 AM Iodinated Contrast Media Recorded By: Crissy Verma; 07/21/2016 10:18:19 AM Current Meds Amitriptyline HCl - 10 MG Oral Tablet; TAKE 1 TABLET AT BEDTIME. MDD:1;Therapy: 88Jsi4042 to (Evaluate:14May2020) Requested for: 36Apm1919; LastRx:37Mjr9404 Ordered amLODIPine Besylate 5 MG Oral Tablet;Therapy: (Recorded:21Jul2016) to Recorded Gabapentin 300 MG Oral Capsule; TAKE 2 CAPSULES 3 TIMES DAILY. MDD:6;Therapy: 19Dec2016 to (Evaluate:19Wmg9444) Requested for: 91Uam5202; LastRx:65Ayy3783 Ordered09/02/2019 glipiZIDE TABS;Therapy: (Recorded:62Pkd7256) to Recorded HYDROcodone-Acetaminophen 10-325 MG Oral Tablet; Take 1 tablet three times a dayas needed for pain MDD:3;Therapy: 04Kyd0124 to (Evaluate:90Our5714) Requested for: 18May2020; LastRx:09Oaf3880 Jrsoovi46/10/20 Ibuprofen 800 MG Oral Tablet; TAKE 1 TABLET TWICE DAILY NEEDED PRN WithFOOD MDD:2;Therapy: 42Gvn9754 to (Evaluate:58Upp4148) Requested for: 45Udx5863; LastRx:46Qsa0955 Ordered Lisinopril TABS;Therapy: (Recorded:77Ntn2725) to Recorded metFORMIN HCl - 500 MG Oral Tablet;Therapy: (Recorded:67Xca7994) to Recorded Past Medical History Denied: History of blood coagulation disorder History of diabetes mellitus (V12.29) (Z86.39) History of headache (V13.89) (Z87.898) History of hypertension (V12.59) (Z86.79) History of low back pain (V13.59) (Z87.39) Denied: History of On anticoagulant therapy Surgical History History of Hernia Repair 1991 Denied: History of Implantable Cardioverter-Defibrillator History of Neck Surgery February 2017 Denied: History of Pacemaker Placement History of Wrist Surgery right, 1987 Family History Family history of hypertension (V17.49) (Z82.49) Family history of diabetes mellitus (V18.0) (Z83.3) Family history of hypertension (V17.49) (Z82.49) Family history of cardiac disorder (V17.49) (Z82.49) Family history of diabetes mellitus (V18.0) (Z83.3) Family history of malignant neoplasm (V16.9) (Z80.9) Family history of hypertension (V17.49) (Z82.49) Social History Current non-drinker of alcohol (V49.89) (Z78.9) Former smoker (V15.82) (Z87.891) Full-time employment Monogamous relationship No illicit drug use Uses chewing tobacco VitalsVital Signs Recorded: 10Fag2093 01:10PM Height: 6 ft 2 inWeight: 313 lb BMI Calculated: 40.19BSA Calculated: 2.63Systolic: 124, SittingDiastolic: 68, SittingHeart Rate: 101Respiration: 16Temperature: 97.7 FHeight measured w/wo shoes: w/shoesPain Scale: 6 Physical ExamGeneral: The patient is a well nourished/well developed, male, who is morbidly obese, who is in no acute distr ess and appears stated age. Eyes: Lids are atraumatic, no lesions, sclerae are anicteric. Ears, Nose, Mouth, Throat: Patient wearing a mask due to COVID-19. Respiratory: Normal chest expansion and respiratory effort. Gait and Station: Gait was normal. Skin: Warm, dry, acyanotic. Psychological: Alert and oriented to person, place and time. Mood and affect are pleasant and appropriate. Judgement intact. Insight normal without delusions or hallucinations. Denies suicidal/homicidal ideation. Results/DataThis patient had a urine drug screen on 01/27/20. Results are in compliance. Assessment 1. Lumbar radiculopathy (724.4) (M54.16) 2. Status post lumbar discectomy (V45.89) (Z98.890) 3. 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 Renew: Amitriptyline HCl - 10 MG Oral Tablet; TAKE 1 TABLET AT BEDTIME. MDD:1 2. Renew: HYDROcodone-Acetaminophen 10-325 MG Oral Tablet; Take 1 tablet three times a day as needed for pain MDD: 3. Renew: Ibuprofen 800 MG Oral Tablet; TAKE 1 TABLET TWICE DAILY NEEDED PRN With FOOD MDD:2 4. UDS-LAB SEND OUT ([facility] Urine Drug Screen); [Do Not Release]; Specimen Source:Urine; Status:In Progress - Specimen/Data Collected; Done: 14Gqi1988 5. Follow-up in 2 months Follow Up Follow-up Status: Hold For - Scheduling Requested for: 83Zlp4184Lyqujlem Appointment for 15 or 30 minutes : Schedule 15 minute appointment Medication:. [facility] IT SECURITY CONSULTANT Information: IT SECURITY CONSULTANT was consulted by my designee and I have reviewed the information presented to me and find no aberrant compliance issues. Patient has been informed. General Medications Prescribed: GABAPENTIN, AMITRIPTYLINE . GENERAL MEDICATIONS: I advised the patient today/previously regarding treatment with the above medication(s). The risks, benefits, common side effects and alternative treatments were discussed with the patient. The provider verbalized with the patient. The patient verbalized understanding and was told to call if there were any untoward effects. Controlled Substance Prescribed: HYDROCODONE . CONTROLLED SUBSTANCE INFORMATION: I advised the patient today/previously regarding treatment with the above controlled substance and/or narcotic. The patient was then informed of the risks, benefits, and alternatives of the narcotic. The risks discussed included but were not limited to physical and/or psychological dependence, tolerance of the medication, drowsiness, sleepiness, balance/coordination problems, confusion, allergic reaction or any other abnormal symptoms. The patient was advised and agreed to use the medication only as prescribed, and not to drive, or operate heavy equipment or machinery. The patient understood and consented to both undergo a narcotic/opiate regimen and agreed to sign and comply with all of the [facility] terms of a controlled substance treatment and agreement.NSAIDS Prescribed: IBUPROFEN . NSAIDS: I advised the patient today/previously regarding treatment with the above NSAIDS. Patient denies history of and is aware of rare but serious risk of kidney, cardiovascular, and gastrointestinal complications. UDS: This is an established patient and is on ongoing opioid therapy. A UDS is being obtained today, the patient has previously consented to UDS as part of the Controlled Substance and Treatment Agreement. The reason for today's UDS is: patient was selected at random and scored as low risk on the opioid risk assessment. Creatinine has been ordered as well for specimen validity, not for kidney function. Preliminary UDS results are not final and should not be used to determine patient care or plan of treatment. Initially a qualitative immunoassay screen will be done. Any positive findings or negative findings that are out of compliance will be further tested with a more comprehensive quantitative confirmation LCMS study. It is part of the normal prescribing protocol of controlled substances and is considered standard of care. Treatment includes: FOLLOW UP: The patient should have a follow up visit in 2 months. Discussion/SummaryPleasant 39-year-old male patient with chronic lumbar pain. His low back pain is stable at this time; somewhat exacerbated as he is on light duty at work because of his knee pain. He is followed by orthopedics and needs to have knee replacement surgery however this is a Workmen's Comp. case and he is awaiting approval for the surgery. Even if he does obtain approval for the surgery, it may be several months until he actually has surgery due to reduced surgical capacity secondary to ferrera virus. Otherwise, in regards to his low back pain he is stable. He will follow up in 2 months time, sooner if needed. [employer] DisclaimerN[place]WC [employer] Disclaimer: This document was dictated and electronically signed using [employer] Speaking software. A reasonable attempt at proof reading has been made to minimize errors. Please call with any questions. Signatures Electronically signed by : Bee Orosco NP; Jun 08 2020 1:30PM EST (Author) Electronically signed by : Rocael Harrison MD; Jun 11 2020 10:19AM EST Name Value Range Interpretation Code Description Data Casandra rce(s) Supporting Document(s) ID Date Data Source [id number] 03/23/2020 03:30:33 PM EDT [facility] PCName: Marcos bragg WilliamsDOB: 1980Provider: Radha Orosco: 03/23/2020 Chief ComplaintChronic low back pain. Chief Complaint 2NYSW VAS PAIN Established: 5 MA completing section: Ramila Ch CNA History of Present IllnessRecent test/procedures: Patient was asked and denies having any tests since their last visit. Patient was asked and denies being seen by any Physicians since their last visit. The patient was last seen by a [facility] provider on 01/27/2020. At today's visit patient presents with their Self Patient is not currently working. The patient is being seen for a follow-up. Pain Duration: 4 years Pain Score: a current pain level of 5/10. Condition type: The patient is being seen for a chronic condition. PAIN LOCATION: the pain is located in the low back and radiates to the right buttock and right thigh. PAST EVALUATION: The patient has been previously evaluated by the following specialty: Orthopedic evaluation by. REVIEW OF PAST DIAGNOSTICS: have included: MRI. PAST TREATMENT has included: OPIOID ANALGESICS (effective). INTERVAL EVENTS: include no significant change impacting patients medical condition. ASSOCIATED SYMPTOMS: include radiating The pain radiates to the right buttock and right thigh., but no fecal incontinence, no extremity weakness and no urinary incontinence. Review of SystemsConstitutional: Normal. Eyes: Normal. ENT: normal. Cardiovascular: Normal. Respiratory: Normal. Gastrointestinal: Normal. Genitourinary: Normal. Musculoskeletal: lower back pain and joint pain. Integumentary: Normal. Neurolo gical: Normal. Psychiatric: Normal. Endocrine: Normal. Hematologic/Lymphatic: Normal. Patient maintains at today's visit there has been no change in his/her hematologic history. I reviewed the above with the patient and I feel the ROS to be negative/normal. Active Problems 1. Bulging of lumbar intervertebral disc (722.10) (M51.26) 2. Chronic bilateral low back pain with right-sided sciatica (724.2,724.3,338.29) (M54.41,G89.29) 3. intermediate (current) use of opiate analgesic (V58.69) (Z79.891) 4. Lumbar radiculopathy (724.4) (M54.16) 5. Right shoulder pain (719.41) (M25.511) 6. Status post lumbar discectomy (V45.89) (Z98.890) 7. Wrist pain (719.43) (M25.539) Allergies Codeine Derivatives Gatrointestinal upset; Recorded By: Teressa Gutierrez; 12/24/2018 9:34:16 AM Latex Itching; Recorded By: Crissy Verma; 07/21/2016 10:18:19 AMDenied Adhesive Tape Recorded By: Crissy Verma; 07/21/2016 10:18:19 AM Iodinated Contrast Media Recorded By: Crissy Verma; 07/21/2016 10:18:19 AM Current Meds Amitriptyline HCl - 10 MG Oral Tablet; TAKE 1 TABLET AT BEDTIME. MDD:1;Therapy: [id number] to (Evaluate:27Roa0530) Requested for: 11Saq1579; LastRx:[id number] Ordered amLODIPine Besylate 5 MG Oral Tablet;Therapy: (Recorded:21Jul2016) to Recorded Gabapentin 300 MG Oral Capsule; TAKE 2 CAPSULES 3 TIMES DAILY. MDD:6;Therapy: 19Dec2016 to (Evaluate:73Zyw4103) Requested for: 15Pif6212; LastRx:[id number] Ordered09/02/2019 glipiZIDE TABS;Therapy: (Recorded:33Fgu1630) to Recorded HYDROcodone-Acetaminophen 10-325 MG Oral Tablet; Take 1 tablet three times a dayas needed for pain MDD:3;Therapy: 84Feg2023 to (Evaluate:93Ibf9413) Requested for: 72Ykb6681; LastRx:[id number] OrderedLD 03/23/2020 Lisinopril TABS;Therapy: (Recorded:17Dsa4900) to Recorded metFORMIN HCl - 500 MG Oral Tablet;Therapy: (Recorded:21Jul2016) to Recorded Past Medical History Denied: History of blood coagulation disorder History of diabetes mellitus (V12.29) (Z86.39) History of headache (V13.89) (Z87.898) History of hypertension (V12.59) (Z86.79) History of low back pain (V13.59) (Z87.39) Denied: History of On anticoagulant therapy Surgical History History of Hernia Repair 1991 Denied: History of Implantable Cardioverter-Defibrillator History of Neck Surgery February 2017 Denied: History of Pacemaker Placement History of Wrist Surgery right, 1987 Family History Family history of hypertension (V17.49) (Z82.49) Family history of diabetes mellitus (V18.0) (Z83.3) Family history of hypertension (V17.49) (Z82.49) Family history of cardiac disorder (V17.49) (Z82.49) Family history of diabetes mellitus (V18.0) (Z83.3) Family history of malignant neoplasm (V16.9) (Z80.9) Family history of hypertension (V17.49) (Z82.49) Social History Current non-drinker of alcohol (V49.89) (Z78.9) Former smoker (V15.82) (Z87.891) Full-time employment Monogamous relationship No illicit drug use VitalsVital Signs Recorded: 68Xwh1701 01:01PM Height: 6 ft Weight: 310 lb BMI Calculated: 42.04BSA Calculated: 2.57Systolic: 140, SittingDiastolic: 82, SittingHeart Rate: 89Respiration: 16Temperature: 98.2 FHeight measured w/wo shoes: w/shoesPain Scale: 5 Physical ExamGeneral: The patient is a well nourished/well developed, male, who is morbidly obese, who is in no acute distress and appears stated age. Eyes: Lids are atraumatic, no lesions, sclerae are anicteric. Ears, Nose, Mouth, Throat: external ears and nose without trauma. Respiratory: Normal chest expansion and respiratory effort. Gait and Station: Gait was normal. Skin: Warm, dry, acyanotic. Psychological: Alert and oriented to person, place and time. Mood and affect are pleasant and appropriate. Judgement intact. Insight normal without delusions or hallucinations. Denies suicidal/homicidal ideation. Results/DataThis patient had a urine drug screen on 01/27/20. Results are in compliance. Assessment 1. Lumbar radiculopathy (724.4) (M54.16) 2. 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 Start: Ibuprofen 800 MG Oral Tablet; TAKE 1 TABLET TWICE DAILY NEEDED PRN With FOOD MDD:2 2. Follow-up in 2 months Follow Up Follow-up Status: Hold For - Scheduling Requested for: [id number] requests a Thursday.Schedule Appointment for 15 or 30 minutes : Schedule 15 minute appointment Medication:. OSITOS IT SECURITY CONSULTANT Information: IT SECURITY CONSULTANT was consulted by my designee and I have reviewed the information presented to me and find no aberrant compliance issues. Patient has been informed. General Medications Prescribed: AMITRIPTYLINE, GABAPENTIN . GENERAL MEDICATIONS: I advised the patient today/previously regarding treatment with the above medication(s). The risks, benefits, common side effects and alternative treatments were discussed with the patient. The provider verbalized with the patient. The patient verbalized understanding and was told to call if there were any untoward effects. Controlled Substance Prescribed: HYDROCODONE . CONTROLLED SUBSTANCE INFORMATION: I advised the patient today/previously regarding treatment with the above contro lled substance and/or narcotic. The patient was then informed of the risks, benefits, and alternatives of the narcotic. The risks discussed included but were not limited to physical and/or psychological dependence, tolerance of the medication, drowsiness, sleepiness, balance/coordination problems, confusion, allergic reaction or any other abnormal symptoms. The patient was advised and agreed to use the medication only as prescribed, and not to drive, or operate heavy equipment or machinery. The patient understood and consented to both undergo a narcotic/opiate regimen and agreed to sign and comply with all of the [facility] terms of a controlled substance treatment and agreement.NSAIDS Prescribed: IBUPROFEN . NSAIDS: I advised the patient today/previously regarding treatment with the above NSAIDS. Patient denies history of and is aware of rare but serious risk of kidney, cardiovascular, and gastrointestinal complications. Treatment includes: FOLLOW UP: The patient should have a follow up visit in 2 months. Discussion/[id number] male patient with chronic lumbar pain. He continues to await a complete workup on his knee as he thinks he may have torn his meniscus but this is likely related to an old Workmen's Compensation injury and therefore he is awaiting approval for an MRI. No changes in his lower back, but the patient states that he notices exacerbation of his pain during the day and is requesting an increase in hydrocodone. I explained to the patient that he is already on maximum daily dose of 3 tablets of hydrocodone and I will not increase his dose at this time. We discussed other avenues of treatment including obtaining a back brace which we are still awaiting approval from his insurance company as well as taking NSAIDs more regularly. The patient states he does have a short prescription of ibuprofen 800 mg that he only takes sparingly for headaches but notes that when he does take it, it also helps his low back. I will provide him with a prescription of ibuprofen 800 mg to be taken as needed. No other changes made today. Patient will follow up in 2 months time, sooner if needed. [employer] DisclaimerNYSWC [employer] Disclaimer: This document was dictated and electronically signed using [employer] Speaking software. A reasonable attempt at proof reading has been made to minimize errors. Please call with any questions. Signatures Electronically signed by : Bee Orosco NP; Mar 23 2020 1:26PM EST (Author) Electronically signed by : Magaly Guillen MD; Mar 23 2020 3:30PM EST Name Value Range Interpretation Code Description Data Casandra rce(s) Supporting Document(s) Procedure Social History Code Duration Value Status Description Data Source(s ) Smoking 08/31/2020 12:00:00 AM EST Patient is a former smoker completed Patient is a former smoker [facility] ([facility]) Vital Signs ID Date Data Source UNK Name Value Range Interpretation Code Description Data Source(s) Body mass index (BMI) [Ratio] 40.9 kg/m2 40.9 k g/m2 [facility] ([facility]) [place] body weight 184 [lb_av] 184 [lb_av] [facility] ([facility]) Body weight 140.616 kg 140.616 kg [facility] ([facility]) Body surface area Derived from formula 2.59 m2 2.59 m2 [facility] ([facility] ) Body weight 310.00 [lb_av] 310.00 [lb_av] [facility] ([facility]) Heart rate 103 /min 103 /min [facility] ([facility]) Oxygen saturation in Arterial blood by Pulse oximetry 98 % 98 % [facility] ([facility]) Systolic blood pressure 148 mm[Hg] 148 mm[Hg] M [facility] ([facility]) Diastolic blood pressure 81 mm[Hg] 81 mm[Hg] [facility] ([facility]) Respiratory rate 18 /min 18 /min [facility] ( [facility]) Body temperature 97.6 [degF] 97.6 [degF] [facility] ([facility]) Body height 73 [in_i] 73 [in_i] [facility] ([facility]) 6'1" Body height 73 [in_i] 73 [in_i] [facility] ([facility]) 6'1" Systolic blood pressure 180 mm[Hg] 180 mm[Hg] [facility] ([facility]) Diastolic blood pressure 106 mm[Hg] 106 mm[Hg] [facility] ([facility]) Heart rate 99 /min 99 /min [facility] ([facility]) Oxygen saturation in Arterial blood by Pulse oximetry 97 % 97 % [facility] ([facility]) Room Air Body temperature 99.2 [degF] 99.2 [degF] [facility] ([facility]) [place] body weight 184 [lb_av] 184 [lb_av] [facility] ([facility]) Systolic blood pressure 130 mm[Hg] 130 mm[Hg] M [facility] ([facility]) Diastolic blood pressure 80 mm[Hg] 80 mm[Hg] [facility] ([facility]) Heart rate 110 /min 110 /min [facility] ([facility]) Oxygen saturation in Arterial blood by Pulse oximetry 97 % 97 % [facility] ([facility]) Room Air Body height 73 [in_i] 73 [in_i] [facility] ([facility]) 6'1" Body weight 310.00 [lb_av] 310.00 [lb_av] [facility] Body mass index (BMI) [Ratio] 40.9 kg/m2 40.9 k g/m2 [facility] ([facility]) [place] body weight 184 [lb_av] 184 [lb_av] [facility] ([facility]) Body weight 140.616 kg 140.616 kg [facility] ([facility]) Body surface area Derived from formula 2.59 m2 2.59 m2 [facility] ([facility]) Body temperature 98.3 [degF] 98.3 [degF] [facility] ([facility]) Body height 72 [in_i] 72 [in_i] [facility] ([facility]) 6'0" [place] body weight 178 [lb_av] 178 [lb_av] [facility] ([facility]) Body temperature 98.6 [degF] 98.6 [degF] [facility] ([facility]) Patient Treatment Plan of Care Planned Activity Planned Date Details Description Data Source (s) Diabetic Shoes 11/19/2020 12:00:00 AM EDT eCW1 ([facility])
--- OUTSIDE RECORDS SUMMARY | 2021-04-29 09:15 | CCD ---
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 Care Senior Art Director Name Role Phone Elizabeth Ibarra MD Unavailable [...] Unavailable Unavailable Elizabeth Ibarra MD Unavailable Unavailable Elizbaeth Ibarra MD Unavailable Unavailable Elizabeth Ibarra MD [...] Elizabeth Calloway MD Unavailable Unavailable DUSSING, BEE PRODUCT/INDUSTRY CONSULTANT-C Unavailable Unavailable DUSSING, BEE PRODUCT/INDUSTRY CONSULTANT-C Unavailable Unavailable DUSSING, BEE PRODUCT/INDUSTRY CONSULTANT-C Unavailable Unavailable DUSSING, BEE PRODUCT/INDUSTRY CONSULTANT-C Unavailable Unavailable DUSSING, BEE PRODUCT/INDUSTRY CONSULTANT-C Unavailable Unavailable DUSSING, BEE PRODUCT/INDUSTRY CONSULTANT-C Unavailable Unavailable DUSSING, BEE PRODUCT/INDUSTRY CONSULTANT-C Unavailable Unavailable DUSSING, BEE PRODUCT/INDUSTRY CONSULTANT-C Unavailable Unavailable DUSSING, BEE PRODUCT/INDUSTRY CONSULTANT-C Unavailable Unavailable DUSSING, BEE PRODUCT/INDUSTRY CONSULTANT-C Unavailable Unavailable DUSSING, BEE PRODUCT/INDUSTRY CONSULTANT-C Unavailable Unavailable DUSSING, BEE PRODUCT/INDUSTRY CONSULTANT-C Unavailable Unavailable DUSSING, BEE PRODUCT/INDUSTRY CONSULTANT-C Unavailable Unavailable DUSSING, BEE PRODUCT/INDUSTRY CONSULTANT-C Unavailable Unavailable DUSSING, BEE PRODUCT/INDUSTRY CONSULTANT-C Unavailable Unavailable DUSSING, BEE PRODUCT/INDUSTRY CONSULTANT-C Unavailable Unavailable DUSSING, BEE PRODUCT/INDUSTRY CONSULTANT-C Unavailable Unavailable DUSSING, BEE PRODUCT/INDUSTRY CONSULTANT-C Unavailable Unavailable DUSSING, BEE PRODUCT/INDUSTRY CONSULTANT-C Unavailable Unavailable DUSSING, BEE PRODUCT/INDUSTRY CONSULTANT-C Unavailable Unavailable DUSSING, BEE PRODUCT/INDUSTRY CONSULTANT-C Unavailable Unavailable DUSSING, BEE PRODUCT/INDUSTRY CONSULTANT-C Unavailable Unavailable DUSSING, BEE PRODUCT/INDUSTRY CONSULTANT-C Unavailable Unavailable DUSSING, BEE PRODUCT/INDUSTRY CONSULTANT-C Unavailable Unavailable DUSSING, BEE PRODUCT/INDUSTRY CONSULTANT-C Unavailable Unavailable DUSSING, BEE PRODUCT/INDUSTRY CONSULTANT-C Unavailable Unavailable DUSSING, BEE PRODUCT/INDUSTRY CONSULTANT-C Unavailable Unavailable DUSSING, BEE PRODUCT/INDUSTRY CONSULTANT-C Unavailable Unavailable DUSSING, BEE PRODUCT/INDUSTRY CONSULTANT-C Unavailable Unavailable DUSSING, BEE PRODUCT/INDUSTRY CONSULTANT-C Unavailable Unavailable DUSSING, BEE PRODUCT/INDUSTRY CONSULTANT-C Unavailable Unavailable DUSSING, BEE PRODUCT/INDUSTRY CONSULTANT-C Unavailable Unavailable DUSSING, BEE PRODUCT/INDUSTRY CONSULTANT-C Unavailable Unavailable DUSSING, BEE PRODUCT/INDUSTRY CONSULTANT-C Unavailable Unavailable Maki SHAFFER Unavailable Unavailable BUNKER, [...] R FABRICIO PA Unavailable Unavailable BUNKER, R FABRICOI PA Unavailable Unavailable BUNKER, R FABRICIO PA [...] M LEWIS PA Unavailable Unavailable AYALA, M LEIWS PA Unavailable Unavailable AYALA, M LEWIS PA [...] is protected by Article 27-F of the [place] Public Health law. If you continue you may have access to information: Regarding HIV / AIDS; Provided by facilities licensed or operated by the [facility] Office of Mental Health; or Provided by the [facility] Office for People With Developmental Disabilities. If such information is present, then the following [facility] mandated warning applies: This information has been [...] law may result in a fine or nursing home sentence or both. A general authorization for the release of medical or other information is NOT sufficient authorization for further disc losure. Encounters Encounter Providers Location Date Indications Data Source(s ) Recurring Patient Referrer: FABRICIO ALEXANDER 11/27/2020 10: 21:34 AM EDT [facility] [place] [address] [address] 11/15/2020 12:00:00 AM EDT eCW1 ([facility]) Outpatient Attender: BEE NEWBERRY-CReferrer: FABRICIO ALEXANDER 10/29/2020 02:30:17 PM EDT [facility] Office Visit Attender: Brodie Sterling/Marli/Navarro/Re indl 10/19/2020 01:45:00 PM EDT [facility] ([facility]) Recurring Patient Referrer: FABRICIO ALEXANDER 10/01/2020 11: 11:12 AM EDT [facility] Office Visit Attender: Brodie Sterling/Marli/Navarro/Re indl 09/18/2020 08:15:00 AM EDT [facility] ([facility]) Outpatient Attender: LEWIS Sterling/Marli/Navarro/Rein dl 08/31/2020 01:30:00 PM EST [facility] ([facility]) Outpatient Attender: BEE NEWBERRY-CReferrer: FABRICIO ALEXANDER 08/27/2020 08:54:12 AM EST [facility] [place] [address] [address] 08/13/2020 12:00:00 AM EST eCW1 ([facility]) [place] [address] [address] 08/13/2020 12:00:00 AM EST eCW1 ([facility]) Outpatient Attender: Brodie Sterling/Cairo/Navarro/Re indl 08/10/2020 07:15:00 AM EST [facility] ([facility] ) Outpatient Attender: Brodie Sterling/Marli/Navarro/Re indl 07/26/2020 08:45:00 AM EST [facility] ([facility], ) Outpatient Attender: BEE LANDEROSCReferrer: FABRICIO ALEXANDER 06/11/2020 10:19:26 AM EST [facility] Outpatient Attender: BEE LANDEROSCReferrer: FABRICIO ALEXANDER 03/23/2020 03:30:33 PM EDT [facility] Immunizations Vaccine Date Status Description Data Source(s) COVID-19 VACCINE Pfizer 04/19/2021 12:00:00 AM EDT completed [facility] Vaccine Series Complete: NOThis Data was Submitted to [facility] Via [employer]. COVID-19 VACC, MRNA(PFIZER)/PF 04/19/2021 12:00:00 AM EDT completed [facility] Medications Medication Brand Name Start Date Product Form Dose Route Admi nistrative Instructions Pharmacy Instructions Status Indications Reaction Description Data Source(s) Diabetic Shoes UNK 11/19/2020 12:00:00 AM EDT active Diabetic Shoes eCW1 ([facility]) Acetaminophen 325 MG / Oxycodone Hydrochloride 5 MG Or al Tablet Oxycodone-Acetaminophen 09/06/2020 12:00:00 AM EST ORAL completed [facility] ([facility] ) Acetaminophen 325 MG / Hydrocodone Bitartrate 5 MG Ora l Tablet Hydrocodone-Acetaminophen 09/05/2020 12:00:00 AM EST ORAL completed [facility] ([facility], ) Insurance Providers Payer name Policy type / Coverage type Policy ID Covered constitution party ID Covered constitution party's relationship to rodrigues Policy Rodrigues Plan Information MEDICAID [id number] SP [id number] Gavin Medicaid F [id number] SELF 7 [id number] [place] Medicaid F [id number] SELF 7 [id number] GAVIN MEDICAID [id number] Leydi 7 [id number] [place] Medicaid F [id number] SELF [id number] GAVIN [id number] SP [id number] [place] Federal Employee Program J [id number] SELF [id number] ANSI-Commercial [id number] [place] O [id number] S [id number] GAVIN MEDICAID PI PI SELF PAY ONLY UNAVAILABLE UNAV AILABLE SELF PAY ONLY [id number] SP [id number] SELF PAY UNAVAILABLE SP UNAVAILA BLE MEDICAID M [id number] S [id number] [place] PPO 302/[id number] SP [id number] DEPT OF LABOR [id number] SP [id number] BCBS FEDERAL EMPLOYEE PROGRAM [id number] SP [id number] GAVIN [id number] SP [id number] DEPART OF LABOR O [id number] S [id number] CPAPC -PHYSICIAN [id number] 20 [id number] CPAC -O/P [id number] 20 [id number] 1 Problems, Conditions, and Diagnoses No Information Surgeries/Procedures Procedure Description Date Indications Data Source(s) ARTHRS KNE SURG W/MENISCECTOMY MED/LAT W/SHVG 09/06/19 12:00:00 AM EST [facility]OS[facility] ([facility]) Results ID Date Data Source [id number] 04/26/2021 12:00:00 AM EDT [facility] Name Value Range Interpretation Code Description Data Casandra rce(s) Supporting Document(s) SARS-CoV2 Rapid Antigen Positive [facility] This lab was reported by [facility]. ID Date Data Source [id number] 10/29/2020 02:30:17 PM EDT [facility]: Marcos bragg WilliamsDOB: 1980Provider: Radha Orosco: 10/26/2020 Chief ComplaintChronic low back pain. 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 The patient is being seen for a [...] pain with right-sided sciatica (724.2,724.3,338.29) (M54.41,G89.29) 3. skilled nursing (current) use of opiate analgesic (V58.69) (Z79.891) [...] Tablet; TAKE 1 TABLET AT BEDTIME. MDD:1;Therapy: 78Mnz9673 to (Evaluate:25Cul1764) Requested for: 90Lwr6774; LastRx:11Oct2020 Ordered amLODIPine Besylate 5 MG Oral Tablet;Therapy: (Recorded:21Jul2016) to Recorded Gabapentin 300 MG Oral Capsule; TAKE 2 CAPSULES 3 TIMES DAILY. MDD:6;Therapy: 19Dec2016 to (Evaluate:61Eca4384) Requested for: 16Jul2020; LastRx:16Ytu2558 Ordered09/02/2019 glipiZIDE TABS;Therapy: (Recorded:30Wey5571) to Recorded HYDROcodone- Acetaminophen 10-325 MG Oral Tablet; Take 1 tablet three times a dayas needed for pain MDD:3;Therapy: 41Wbg6898 to (Evaluate:79Whb0801) Requested for: 11Oct2020; LastRx:11Oct2020 Ordered10/26/2020 12PM Ibuprofen 800 MG Oral Tablet; TAKE 1 TABLET TWICE DAILY NEEDED PRN WithFOOD MDD:2;Therapy: 23Jdo4824 to (Evaluate:10Dec2020) Requested for: 11Oct2020; LastRx:11Oct2020 Ordered Lisinopril TABS;Therapy: (Recorded:71Fvu0004) to Recorded metFORMIN HCl - 500 MG [...] Status post lumbar discectomy (V45.89) (Z98.890) 3. emt intermediate (current) use of opiate analgesic (V58.69) (Z79.891) Plan 1. MIPS - Survey Evaluation Evaluation Status: Complete Done: 27Sjz7640Cksqwm Depression Screening - Patient's PHQ-9 score is: [...] Hold For - Scheduling Re quested for: 87Ssp5400Ecrxqmg (his day off of work). KDSchedule Appointment for 15 or 30 minutes : Schedule 15 minute appointment Medication:. [place] REAL ESTATE SERVICES ADMINISTRATOR Information: REAL ESTATE SERVICES ADMINISTRATOR was consulted by my designee and I [...] sign and comply with all of the [facility] terms of a [...] pain, consider the facet algorithm in follow-up. [employer] DisclaimerN[place]WC [employer] Disclaimer: This document was dictated and electronically signed using Prevoty Speaking software. A reasonable attempt at proof reading has been made to minimize errors. Please call with any questions. Signatures Electronically signed by : Bee Orosco NP; Oct 26 2020 2:05PM EST (Author) Electronically signed by : Rocael Harrison MD; Oct 29 2020 2:30PM EST Name Value Range Interpretation Code Description Data Casandra rce(s) Supporting Document(s) ID Date Data Source [id number] 09/05/2020 05:24:00 PM EST [facility] ([facility] ) Name Value Range Interpretation Code Description Data Casandra rce(s) Supporting Document(s) Glucose [Mass/volume] in Capillary blood by Glucometer 221 mg/dL 70-105 Above high normal [facility] ([facility], ) ID Date Data Source [id number] 09/05/2020 01:38:00 PM EST [facility] ([facility] ) Name Value Range Interpretation Code Description Data Casandra rce(s) Supporting Document(s) Glucose [Mass/volume] in Capillary blood by Glucometer 240 mg/dL 70-105 Above high [facility] ID Date Data Source [id number] 08/31/2020 11:00:00 AM EST [facility] Name Value Range Interpretation Code Description Data Casandra rce(s) Supporting Document(s) SARS coronavirus 2 RNA Not Detected [facility] This lab was ordered by [facility] and reported by [facility]. ID Date Data Source [id number] 08/27/2020 08:54:12 AM EST [facility] PC[facility]: Marcos PeresB: 1980Provider: Radha Orosco: 08/24/2020 Chief ComplaintChronic low back pain. Chief Complaint 2NYSW VAS PAIN Established: MA completing section: Zaid BEDOYA History of Present IllnessRecent test/procedures: Patient was asked and denies having any tests since their last visit. Patient was asked and denies being seen by any Physicians since their last visit. The patient was last seen by a [facility] provider on 06/08/2020. At today's visit patient presents with their Self Implanted Devices The patient does not have any implanted devices. The patient does not have a glucose monitoring device. Patient is currently working. 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 The patient is being seen for a [...] pain with right-sided sciatica (724.2,724.3,338.29) (M54.41,G89.29) 3. emt intermediate (current) use of opiate analgesic (V58.69) [...] Tablet; TAKE 1 TABLET AT BEDTIME. MDD:1;Therapy: 90Epd2678 to (Evaluate:06Sep2020) Requested for: 25Ljh2460; LastRx:15Vct7741 Ordered amLODIPine Besylate 5 MG Oral Tablet;Therapy: (Recorded:21Jul2016) to Recorded Gabapentin 300 MG Oral Capsule; TAKE 2 CAPSULES 3 TIMES DAILY. MDD:6;Therapy: 19Dec2016 to (Evaluate:14Uou1419) Requested for: 16Jul2020; LastRx:54Olx8409 Ordered09/02/2019 glipiZIDE TABS;Therapy: (Recorded:14Cno6177) to Recorded HYDROcodone-Acetaminophen 10-325 MG Oral Tablet; Take 1 tablet three times a dayas needed for pain MDD:3;Therapy: 43Rqo2034 to (Evaluate:13Sep2020) Requested for: 14Aug2020; LastRx:68Zve5273 OrderedLD 11am 08/24/2020 Ibuprofen 800 MG Oral Tablet; TAKE 1 TABLET TWICE DAILY NEEDED PRN WithFOOD MDD:2;Therapy: 74Rfl5480 to (Evaluate:14Sep2020) Requested for: 16Jul2020; LastRx:16Jul2020 Ordered Lisinopril TABS;Therapy: (Recorded:35Jax4694) to Recorded metFORMIN HCl - 500 MG [...] use Uses chewing tobacco VitalsVital Signs Recorded: 84Erj7714 02:07PM Height: 6 ft 1 inWeight: 311 [...] Assessment 1. Lumbar radiculopathy (724.4) (M54.16) 2. emt intermediate (current) use of opiate analgesic (V58.69) (Z79.891) 3. Status post lumbar discectomy (V45.89) (Z98.890) Plan 1. Follow-up in 2 months Follow Up Follow-up Status: Hold For - Scheduling Requested for: 33Mgp8068Gjpkdml [facility] Appointment for 15 or 30 minutes : Schedule 15 minute appointment Medication:. [place] REAL ESTATE SERVICES ADMINISTRATOR Information: REAL ESTATE SERVICES ADMINISTRATOR was consulted by my designee and I [...] sign and comply with all of the [facility] terms of a controlled substance treatment and [...] time to reevaluate his low back pain. [employer] DisclaimerN[place]WC [employer] Disclaimer: This document was dictated and electronically signed using Prevoty Speaking software. A reasonable attempt at proof reading has been made to minimize errors. Please call with any questions. Signatures Electronically signed by : Bee Orosco NP; Aug 24 2020 2:29PM EST (Author) Electronically signed by : Rolan Lassiter MD; Aug 27 2020 8:54AM EST Name Value Range Interpretation Code Description Data Casandra rce(s) Supporting Document(s) ID Date Data Source [id number] 06/11/2020 10:19:26 AM EST [facility]: Marcos AmayaDOB: 1980Provider: [...] is approved, surgeries have been cut in 06/30 due to COVID and he may be [...] pain with right-sided sciatica (724.2,724.3,338.29) (M54.41,G89.29) 3. skilled nursing (current) use of opiate analgesic (V58.69) (Z79.891) [...] Tablet; TAKE 1 TABLET AT BEDTIME. MDD:1;Therapy: 58Bwi9474 to (Evaluate:14May2020) Requested for: 35Xks5302; LastRx:21Ckl0135 Ordered amLODIPine Besylate 5 MG Oral Tablet;Therapy: (Recorded:21Jul2016) to Recorded Gabapentin 300 MG Oral Capsule; TAKE 2 CAPSULES 3 TIMES DAILY. MDD:6;Therapy: 19Dec2016 to (Evaluate:41Rgg2531) Requested for: 45Utn9338; LastRx:82Tsp6925 Ordered09/02/2019 glipiZIDE TABS;Therapy: (Recorded:59Anf7269) to Recorded HYDROcodone-Acetaminophen 10-325 MG Oral Tablet; Take 1 tablet three times a dayas needed for pain MDD:3;Therapy: 86Mrt9940 to (Evaluate:35Ccv5763) Requested for: 18May2020; LastRx:18May2020 Mdcjzeg73/10/20 Ibuprofen 800 MG Oral Tablet; TAKE 1 TABLET TWICE DAILY NEEDED PRN WithFOOD MDD:2;Therapy: 23Kkx6362 to (Evaluate:08Qrr3085) Requested for: 47Xax0610; LastRx:99Kyo6965 Ordered Lisinopril TABS;Therapy: (Recorded:00Qyd8898) to Recorded metFORMIN HCl - 500 MG [...] use Uses chewing tobacco VitalsVital Signs Recorded: 12Jap0926 01:10PM Height: 6 ft 2 inWeight: 313 [...] Status post lumbar discectomy (V45.89) (Z98.890) 3. emt intermediate (current) use of opiate analgesic (V58.69) [...] With FOOD MDD:2 4. UDS-LAB SEND OUT ([facility] Urine Drug Screen); [Do Not Release]; Specimen Source:Urine; Status:In Progress - Specimen/Data Collected; Done: 32Zab1444 5. Follow-up in 2 months Follow Up Follow-up Status: Hold For - Scheduling Requested for: 80Jof4585Pmjabpiw Appointment for 15 or 30 minutes : Schedule 15 minute appointment Medication:. [facility] REAL ESTATE SERVICES ADMINISTRATOR Information: REAL ESTATE SERVICES ADMINISTRATOR was consulted by my designee and I [...] sign and comply with all of the [facility] terms of a [...] in 2 months time, sooner if needed. [employer] DisclaimerN[place]WC [employer] Disclaimer: This document was dictated and electronically signed using Prevoty Speaking software. A reasonable attempt at proof reading has been made to minimize errors. Please call with any questions. Signatures Electronically signed by : Bee Orosco NP; Jun 08 2020 1:30PM EST (Author) Electronically signed by : Rocael Harrison MD; Jun 11 2020 10:19AM EST Name Value Range Interpretation Code Description Data Casandra rce(s) Supporting Document(s) ID Date Data Source [id number] 03/23/2020 03:30:33 PM EDT [facility]: Marcos bragg WilliamsDOB: 1980Provider: Kwesi JeannetteBelkys: 03/23/2020 Chief ComplaintChronic low back pain. Chief Complaint 2NYSW VAS PAIN Established: 5 MA completing section: Ramila Ch CNA History of Present IllnessRecent test/procedures: Patient was asked and denies having any tests since their last visit. Patient was asked and denies being seen by any Physicians since their last visit. The patient was last seen by a [facility] provider on 01/27/2020. At [...] pain with right-sided sciatica (724.2,724.3,338.29) (M54.41,G89.29) 3. skilled nursing (current) use of opiate analgesic (V58.69) (Z79.891) [...] Tablet; TAKE 1 TABLET AT BEDTIME. MDD:1;Therapy: 46Pba1398 to (Evaluate:72Psf4434) Requested for: 76Bdi1312; LastRx:70Jeg7142 Ordered amLODIPine Besylate 5 MG Oral Tablet;Therapy: (Recorded:21Jul2016) to Recorded Gabapentin 300 MG Oral Capsule; TAKE 2 CAPSULES 3 TIMES DAILY. MDD:6;Therapy: 19Dec2016 to (Evaluate:10Rov6338) Requested for: 82Kxd0027; LastRx:34Hfg3688 Ordered09/02/2019 glipiZIDE TABS;Therapy: (Recorded:56Tms1407) to Recorded HYDROcodone-Acetaminophen 10-325 MG Oral Tablet; Take 1 tablet three times a dayas needed for pain MDD:3;Therapy: 18Vtq4002 to (Evaluate:56Nia1624) Requested for: 53Eph5510; LastRx:75Nmm2084 OrderedLD 03/23/2020 Lisinopril TABS;Therapy: (Recorded:66Gje4550) to Recorded metFORMIN HCl - 500 MG Oral Tablet;Therapy: (Recorded:52Xws8867) to Recorded Past Medical History Denied: History [...] No illicit drug use VitalsVital Signs Recorded: 02Ryw2669 01:01PM Height: 6 ft Weight: 310 lb [...] Assessment 1. Lumbar radiculopathy (724.4) (M54.16) 2. emt intermediate (current) use of opiate analgesic (V58.69) (Z79.891) Plan 1. Start: Ibuprofen 800 MG Oral Tablet; TAKE 1 TABLET TWICE DAILY NEEDED PRN With FOOD MDD:2 2. Follow-up in 2 months Follow Up Follow-up Status: Hold For - Scheduling Requested for: 23Stu7855Chxklgk requests a Thursday.Schedule Appointment for 15 or 30 minutes : Schedule 15 minute appointment Medication:. LAKESHIA REAL ESTATE SERVICES ADMINISTRATOR Information: REAL ESTATE SERVICES ADMINISTRATOR was consulted by my designee and I [...] sign and comply with all of the [facility] terms of a controlled substance treatment and agreement.NSAIDS Prescribed: IBUPROFEN . NSAIDS: I advised the patient today/previously regarding treatment with the above NSAIDS. Patient denies history of and is aware of rare but serious risk of kidney, cardiovascular, and gastrointestinal complications. Treatment includes: FOLLOW UP: The patient should have a follow up visit in 2 months. Discussion/Nfeehpw40-hpuw-tgk male patient with chronic lumbar pain. He [...] in 2 months time, sooner if needed. [employer] DisclaimerN[place]WC [employer] Disclaimer: This document was dictated and electronically signed using Prevoty Speaking software. A reasonable attempt at proof [...] smoker completed Patient is a former smoker [facility] ([facility], ) Vital Signs ID Date Data Source UNK Name Value Range Interpretation Code Description Data Source(s) Body weight 310.00 [lb_av] 310.00 [lb_av] [facility] T ([facility]) Body mass index (BMI) [Ratio] 40.9 kg/m2 40.9 k g/m2 [facility] ([facility], ) [employer] body weight 184 [lb_av] 184 [lb_av] [facility] T ([facility]) Body weight 140.616 kg 140.616 kg [facility] ([facility]) Body surface area Derived from formula 2.59 m2 2.59 m2 [facility] ([facility]) Heart rate 103 /min 103 /min [facility] ([facility]) Oxygen saturation in Arterial blood by Pulse oximetry 98 % 98 % [facility] ([facility]) Systolic blood pressure 148 mm[Hg] 148 mm[Hg] M [facility] ([facility]) Diastolic blood pressure 81 mm[Hg] 81 mm[Hg] [facility] ([facility]) Respiratory rate 18 /min 18 /min [facility] ( [facility]) Body temperature 97.6 [degF] 97.6 [degF] [facility] ([facility]) Body height 73 [in_i] 73 [in_i] [facility] ([facility]) 6'1" Body height 73 [in_i] 73 [in_i] [facility] ([facility]) 6'1" Systolic blood pressure 180 mm[Hg] 180 mm[Hg] [facility] ([facility]) Diastolic blood pressure 106 mm[Hg] 106 mm[Hg] [facility] ([facility]) Heart rate 99 /min 99 /min [facility] ([facility]) Oxygen saturation in Arterial blood by Pulse oximetry 97 % 97 % [facility] ([facility]) Room Air Body temperature 99.2 [degF] 99.2 [degF] [facility] ([facility]) [employer] body weight 184 [lb_av] 184 [lb_av] MED[facility] T ([facility]) Systolic blood pressure 130 mm[Hg] 130 mm[Hg] M [facility] ([facility]) Diastolic blood pressure 80 mm[Hg] 80 mm[Hg] [facility] ([facility]) Heart rate 110 /min 110 /min [facility] ([facility]) Oxygen saturation in Arterial blood by Pulse oximetry 97 % 97 % [facility] ([facility]) Room Air Body height 73 [in_i] 73 [in_i] [facility] ([facility]) 6'1" Body weight 310.00 [lb_av] 310.00 [lb_av] [facility] T ([facility]) Body mass index (BMI) [Ratio] 40.9 kg/m2 40.9 k g/m2 [facility] ([facility]) [employer] body weight 184 [lb_av] 184 [lb_av] [facility] T ([facility]) Body weight 140.616 kg 140.616 kg [facility] ([facility]) Body surface area Derived from formula 2.59 m2 2.59 m2 [facility] ([facility]) Body temperature 98.3 [degF] 98.3 [degF] [facility] ([facility]) Body height 72 [in_i] 72 [in_i] [facility] ([facility]) 6'0" [employer] body weight 178 [lb_av] 178 [lb_av] [facility] ([facility]) Body temperature 98.6 [degF] 98.6 [degF] [facility] ([facility]) Patient Treatment Plan of Care Planned Activity Planned Date Details Description Data Source (s) Diabetic Shoes 11/19/2020 12:00:00 AM EDT [id number] ([facility])
[2021-04-29] MEDS ORDERED: ACETAMINOPHEN 500 MG TAB PO ONE (09:35)
[2021-04-29 12:15] VITALS: BP 180/109
== END 2021-04-29 13:48 | disposition home or self-care (01) ==
LOC: M ED 07:06
DX: U07.1 COVID-19 (principal); E11.9 Type 2 diabetes mellitus without complications; I10 Essential (primary) hypertension; F17.200 Nicotine dependence, unspecified, uncomplicated; Z88.5 Allergy status to narcotic agent; Z91.040 Latex allergy status; Z79.899 Other long term (current) drug therapy

== ENCOUNTER 2021-04-29 14:53 | Outpatient (CLI) | payer BC ==
[~2021-04-29] VITALS: Ht 185.4 cm; Wt 130.0 kg
[2021-04-29 14:09] VITALS: BP 136/82
--- NOTE | 2021-04-29 14:12 | CR.PDOC ---
General Date of Consultation: Apr 29, 2021 Referring Provider: Anant Stallings DO Attending Physician: RADHA FERNANDEZ MD Consultation REASON FOR CONSULTATION/CHIEF COMPLAINT: Covid-19 related illness for MABs HISTORY OF PRESENT ILLNESS: 40 yo M with with a history of obesity, DM, HTN, migraine headaches who developed loss of taste and congestion on 04/26 and presented to an outpatient provider where he tested positive for covid-19 infection, and over the weekend, has had progressive myalgias, weakness, drug cough, congestion and thus presented to the ED for evaluation and now recommended for MABs infusion to reduce the risk of severe covid-19 related illness after he had unremarkable basic labs and had normal saturation on room air with ambulation. He denies chest pain, palpitations, emesis, bloody sputum or stool. He has poor PO due to loss of taste and poor appetite but he has no dizziness and is trying to stay hydrated. ALLERGIES: Please see below. HOME MEDICATIONS: Please see below. PAST MEDICAL HISTORY: obesity DM HTN migraine headaches history of Tate's duct arthritis PAST SURGICAL HISTORY: R wrist surgery Submandibular surgery lower back surgery hernia repair L knee surgery FAMILY HISTORY: Father: HTN SOCIAL HISTORY: Tobacco use: former smoker ETOH: occasional Illicit drug use: Denies REVIEW OF SYSTEMS: 10 point ROS was completed and pertinent positives were noted in the HPI. PHYSICAL EXAMINATION: VITAL SIGNS: Please see below. GENERAL APPEARANCE: Obese, NAD HEENT: NCAT, EOMI, anicteric, MMM RESPIRATORY: CTAB at this time CARDIOVASCULAR: RRR, no m/r/g ABDOMEN: normoactive sounds, soft, NTND EXTREMITIES: WWP, no edema SKIN: with extensive tattooes, no erythema or lesions. NEUROLOGICAL: CN3-12 intact, normal gait, grossly nonfocal PSYCHIATRIC: AOx3 LABORATORY DATA: Please see below. ASSESSMENT/PLAN: 40 yo M with with a history of obesity, DM, HTN, migraine headaches who developed loss of taste and congestion on 04/26 and presented to an outpatient provider where he tested positive for covid-19 infection, and over the weekend, has had progressive myalgias, weakness, drug cough, congestion and thus presented to the ED for evaluation and now recommended for MABs infusion. To be discharged home follow infusion to continue self isolation until all symptoms resolve. Vital Signs/I&O Vital Signs Date Time Temp Pulse Resp B/P (MAP) Pulse Ox O2 Delivery O2 Flow Rate FiO2 04/29/21 13:49 Room Air Allergies Coded Allergies: latex (Verified Allergy, Intermediate, rash, 08/24/20) codeine (Verified Allergy, Unknown, vomiting, 09/05/20) Home Medications Scheduled Amlodipine Besylate (Amlodipine Besylate) 2.5 Mg Tablet, 2.5 MG PO DAILY, (Reported) Glipizide (Glipizide) 10 Mg Tablet, 10 MG PO DAILY, (Reported) Ibuprofen (Ibuprofen) 400 Mg Tablet, 800 MG PO BID, (Reported) Lisinopril (Lisinopril) 20 Mg Tablet, 20 MG PO DAILY, (Reported) Metformin HCl (Metformin HCl) 500 Mg Tablet, 500 MG PO BID, (Reported) RADHA FERNANDEZ MD Apr 29, 2021 14:12
[2021-04-29 14:39] VITALS: BP 136/82
[~2021-04-29 14:53] MED LIST changes: +ACETAMINOPHEN TAB 650MG DOSE (2X325MG) PO PRN; +ALBUTEROL 90 MCG/ACT 8GM HFA INHALER INH PRN; +ALBUTEROL SULFATE 2.5 MG/0.5 ML INH NEB SOLN INH PRN; +BAMLANIVIMAB 700 MG, ETESEVIMAB 1,400 MG in NS 250 ML IV ONE; +CASIRIVIMAB/IMDEVIMAB 1,200 MG in NS 250 ML IV ONE; +EPINEPHrine INJ 1 MG/ML 1ML AMP IM PRN; +NS 1,000 ML IV SCH; +diphenhydrAMINE 50MG/ML VIAL (J1200) IV PRN; +methylPREDNISolone 125MG 2ML VIAL IV PRN
[2021-04-29 15:09] VITALS: BP 143/75
[2021-04-29 16:09] VITALS: BP 137/88
== END 2021-04-29 16:18 | disposition home or self-care (01) ==
LOC: M OPCLI4 14:53
PROVIDERS: ATTEND Internal Medicine
DX: U07.1 COVID-19 (principal); Z88.5 Allergy status to narcotic agent; Z91.040 Latex allergy status

== ENCOUNTER → 2024-05-20 | Outpatient (REF) | payer BC ==
[~2024-05-20] MED LIST changes: -ACETAMINOPHEN TAB 650MG DOSE (2X325MG) PO PRN; -ALBUTEROL 90 MCG/ACT 8GM HFA INHALER INH PRN; -ALBUTEROL SULFATE 2.5 MG/0.5 ML INH NEB SOLN INH PRN; -BAMLANIVIMAB 700 MG, ETESEVIMAB 1,400 MG in NS 250 ML IV ONE; -CASIRIVIMAB/IMDEVIMAB 1,200 MG in NS 250 ML IV ONE; -EPINEPHrine INJ 1 MG/ML 1ML AMP IM PRN; -NS 1,000 ML IV SCH; -diphenhydrAMINE 50MG/ML VIAL (J1200) IV PRN; -methylPREDNISolone 125MG 2ML VIAL IV PRN
== END ==
LOC: M SFHCLERA 15:21
PROVIDERS: ATTEND Physician Assistant
DX: I10 Essential (primary) hypertension (principal); E11.65 Type 2 diabetes mellitus with hyperglycemia; E78.2 Mixed hyperlipidemia

== ENCOUNTER → 2024-05-21 | Outpatient (CLI) | payer BC ==
[2024-05-21 13:01] LABS: BASO % 0.6 % (0.0-1.0); EOS # 0.1 10^3/uL (0.0-0.5); HEMOGLOBIN 16.9 g/dl (13.5-17.5); LYMPH # 2.2 10^3/uL (1.5-5.0); LYMPH % 34.2 % (24.0-44.0); MEAN CORPUSCULAR HEMOGLOBIN 30.7 pg (27.0-33.0); MEAN CORPUSCULAR HGB CONC 35.2 g/dl (32.0-36.5); MEAN CORPUSCULAR VOLUME 87.3 fl (80.0-96.0); MONO # 0.5 10^3/uL (0.0-0.8); MONO % 7.6 % (2.0-8.0); NEUTROPHILS # 3.6 10^3/uL (1.5-8.5); NEUTROPHILS % 55.3 % (36.0-66.0); PLATELET COUNT, AUTOMATED 200 10^3/uL (150-450); WHITE BLOOD COUNT 6.4 10^3/uL (4.0-10.0)
[2024-05-21 13:27] LABS: ALBUMIN 3.6 G/DL (3.2-5.2); ALKALINE PHOSPHATASE 132 U/L (40-129); ALT/SGPT 21 U/L (7.0-40); AST/SGOT < 8 U/L (<34); BILIRUBIN,TOTAL 0.5 MG/DL (0.3-1.2); BLOOD UREA NITROGEN 12 MG/DL (9-23); CALCIUM LEVEL 9.5 MG/DL (8.5-10.1); CARBON DIOXIDE LEVEL 24 MMOL/L (20-31); CHLORIDE LEVEL 102 MMOL/L (98-107); CHOLESTEROL LEVEL 215 MG/DL (<200); CHOLESTEROL RISK RATIO 7.14 (<5); CREATININE FOR GFR 0.71 MG/DL (0.70-1.30); GLOMERULAR FILTRATION RATE > 60.0 (>60); GLUCOSE, FASTING 366 MG/DL (60-100); HDL CHOLESTEROL 30.1 MG/DL (>40); NON-HDL-C 184.9 MG/DL; POTASSIUM SERUM 3.9 MMOL/L (3.5-5.1); SODIUM LEVEL 136 MMOL/L (136-145); TOTAL PROTEIN 6.9 G/DL (5.7-8.2); TRIGLYCERIDES LEVEL 584 MG/DL (<150)
[2024-05-21 13:27] LABS: CREATININE, URINE 48.7 MG/DL; MAU/CREAT RATIO 84.1 MCG/MG (0.0-30.0)
[2024-05-21 13:40] LABS: HEMOGLOBIN A1c 13.7 % (4.0-6.0)
== END ==
LOC: M LAB 12:08
PROVIDERS: ATTEND Physician Assistant
DX: E78.2 Mixed hyperlipidemia (principal); E11.65 Type 2 diabetes mellitus with hyperglycemia; I10 Essential (primary) hypertension